=== PATIENT | female | born 1935 | race Caucasian/White ===

== ENCOUNTER 2018-08-18 10:48 | Inpatient (IN) | payer MEDICARE, OTHER ==
[~2018-08-18] VITALS: Ht 157.5 cm; Wt 54.2 kg
[~2018-08-18 10:48] MED LIST: ASPI-825 PO; D-AM10TA2 PO; DIAZ10TA PO; IBUP-2070 PO; TRAM50TA4 PO; VICOT
[2018-08-18] MEDS ORDERED: OXYC20 PO (10:59)
[2018-08-18] MEDS ORDERED: SODIUM CHLORIDE 0.9% 1,000 ML IV ONE (11:30)
[2018-08-18] MEDS ORDERED: ACETAMINOPHEN 325 MG TABLET PO ONE (11:30)
[2018-08-18 11:39] LABS: BASOPHILS % (AUTO) 0.4 % (0.0-2.0); EOSINOPHILS % (AUTO) 2.7 % (1.0-6.0); HEMATOCRIT 39.9 % (36-46); HEMOGLOBIN 13.1 g/dL (12.0-16.0); LYMPHOCYTES # (AUTO) 1.5 K/uL (1.0-4.8); MEAN CORPUSCULAR HEMOGLOBIN 28.9 pg (26.0-34.0); MEAN CORPUSCULAR HGB CONC 32.9 G/dL (31.0-37.0); MEAN CORPUSCULAR VOLUME 88 fL (80-100); MONOCYTES # (AUTO) 0.4 K/uL (0.1-1.0); MONOCYTES % (AUTO) 5.7 % (2.0-9.0); NEUTROPHILS # (AUTO) 4.2 K/uL (1.8-7.7); NEUTROPHILS % (AUTO) 67.2 % (40.0-70.0); PLATELET COUNT (AUTO) 334 K/uL (150-450); RED BLOOD CELL COUNT(AUTO) 4.55 MIL/uL (4.00-5.20); RED CELL DISTRIBUTION WIDTH 14.1 % (11.5-14.5)
[2018-08-18 12:16] LABS: ALANINE AMINOTRANSFERASE 24 U/L (12-78); ALBUMIN 3.4 g/dL (3.4-5.0); ALKALINE PHOSPHATASE 92 U/L (46-116); ANION GAP 9 mmol/L (8-16); ASPARTATE AMINOTRANSFERASE 22 U/L (15-37); BILIRUBIN,TOTAL 0.3 mg/dL (0.1-1.0); CALCIUM, TOTAL 8.7 mg/dL (8.8-10.5); CARBON DIOXIDE 27 mmol/L (22-29); CHLORIDE 106 mmol/L (98-107); CREATININE 0.74 mg/dL (0.60-1.30); GLUCOSE,RANDOM 112 mg/dL (70-110); SODIUM SERUM 142 mmol/L (136-145); TOTAL PROTEIN, SERUM 6.8 g/dL (6.4-8.2); UREA NITROGEN, BLOOD 10 mg/dL (7-18)
[2018-08-18 12:26] LABS: POTASSIUM 2.9 mmol/L (3.5-5.1)
[2018-08-18 12:27] LABS: GLOMERULAR FILTR. RATE CALC > 60 mL/min (>60)
[2018-08-18] MEDS ORDERED: ONDANSETRON HCL 4 MG/2 ML VIAL IVP ONE (12:30)
[2018-08-18] MEDS ORDERED: POTASSIUM CHLORIDE 20 MEQ ER TABLET PO ONE (12:30)
[2018-08-18 12:44] LABS: INFLUENZA TYPE A NEGATIVE FOR TYPE A (NEGATIVE); INFLUENZA TYPE B NEGATIVE FOR TYPE B (NEGATIVE)
[2018-08-18] MEDS ORDERED: ASPIRIN 81 MG CHEWABLE TABLET PO ONE (13:45)
[2018-08-18] MEDS ORDERED: ONDANSETRON HCL 4 MG/2 ML VIAL IVP PRN ×2 (14:00→21:15)
[2018-08-18] MEDS ORDERED: ACETAMINOPHEN 325 MG TABLET PO PRN ×2 (14:00→21:15)
[2018-08-18] MEDS: ONDANSETRON HCL 4 MG/2 ML VIAL IVP PRN (18:01)
[2018-08-18] MEDS: HYDROmorphone 2 MG/ML SYRINGE IVP PRN (18:02)
[2018-08-18] MEDS ORDERED: ZOLPIDEM TARTRATE 5 MG TABLET PO PRN (21:15)
[2018-08-18] MEDS ORDERED: BISACODYL 10 MG RECTAL RECTAL SUPPOSITORY PR PRN (21:15)
[2018-08-18] MEDS ORDERED: MAGNESIUM HYDROXIDE SUSPENSION 30 ML UDCUP PO PRN (21:15)
[2018-08-18 23:32] VITALS: BP 145/55
[2018-08-18] MEDS: NITROGLYCERIN 2% (1 GM=INCH) PACKET TP SCH (23:54)
[2018-08-18] MEDS: HEPARIN SODIUM,PORCINE 5,000 UNITS/ML VIAL SQ SCH (23:54)
[2018-08-19] VITALS (7 sets, daily range): BP systolic 116–151; BP diastolic 54–79
[2018-08-19] MEDS: HYDROmorphone 2 MG/ML SYRINGE IVP PRN ×4 (02:22→20:25)
[2018-08-19 06:38] LABS: BASOPHILS % (AUTO) 0.4 % (0.0-2.0); EOSINOPHILS % (AUTO) 2.9 % (1.0-6.0); HEMATOCRIT 36.8 % (36-46); HEMOGLOBIN 12.3 g/dL (12.0-16.0); LYMPHOCYTES # (AUTO) 1.9 K/uL (1.0-4.8); LYMPHOCYTES % (AUTO) 29.9 % (22.0-44.0); MEAN CORPUSCULAR HEMOGLOBIN 29.8 pg (26.0-34.0); MEAN CORPUSCULAR HGB CONC 33.5 G/dL (31.0-37.0); MEAN CORPUSCULAR VOLUME 89 fL (80-100); MONOCYTES # (AUTO) 0.4 K/uL (0.1-1.0); NEUTROPHILS # (AUTO) 3.7 K/uL (1.8-7.7); NEUTROPHILS % (AUTO) 59.8 % (40.0-70.0); PLATELET COUNT (AUTO) 309 K/uL (150-450); RED BLOOD CELL COUNT(AUTO) 4.14 MIL/uL (4.00-5.20); RED CELL DISTRIBUTION WIDTH 14.3 % (11.5-14.5)
[2018-08-19 07:06] LABS: B-TYPE NATRIURETIC PEPTIDE 187 pg/mL (0-100)
[2018-08-19 07:18] LABS: ALANINE AMINOTRANSFERASE 20 U/L (12-78); ALKALINE PHOSPHATASE 78 U/L (46-116); ANION GAP 6 mmol/L (8-16); ASPARTATE AMINOTRANSFERASE 19 U/L (15-37); BILIRUBIN,TOTAL 0.2 mg/dL (0.1-1.0); CALCIUM, TOTAL 8.3 mg/dL (8.8-10.5); CARBON DIOXIDE 28 mmol/L (22-29); CHLORIDE 110 mmol/L (98-107); CHOLESTEROL 144 mg/dL (131-200); CREATININE 0.78 mg/dL (0.60-1.30); GLOMERULAR FILTR. RATE CALC > 60 mL/min (>60); GLUCOSE,RANDOM 92 mg/dL (70-110); HDL CHOLESTEROL 36 mg/dL (40-60); LDL CHOL (CALC.) 88 mg/dL (0-130); POTASSIUM 3.7 mmol/L (3.5-5.1); SODIUM SERUM 144 mmol/L (136-145); TOTAL PROTEIN, SERUM 5.7 g/dL (6.4-8.2); TRIGLYCERIDES 100 mg/dL (15-150); UREA NITROGEN, BLOOD 13 mg/dL (7-18)
[2018-08-19] MEDS: PANTOPRAZOLE SODIUM 40 MG DR TABLET PO SCH (08:17)
[2018-08-19] MEDS: NITROGLYCERIN 2% (1 GM=INCH) PACKET TP SCH ×3 (08:17→23:47)
[2018-08-19] MEDS: HEPARIN SODIUM,PORCINE 5,000 UNITS/ML VIAL SQ SCH ×3 (08:17→23:47)
[2018-08-19] MEDS: DOCUSATE SODIUM 100 MG CAPSULE PO SCH ×2 (08:17→19:39)
[2018-08-19] MEDS: ASPIRIN 81 MG CHEWABLE TABLET PO SCH (08:17)
[2018-08-20] MEDS: HYDROmorphone 2 MG/ML SYRINGE IVP PRN ×4 (02:56→21:32)
[2018-08-20 03:46] VITALS: BP 138/60
[2018-08-20 07:37] VITALS: BP 168/80
[2018-08-20] MEDS: HEPARIN SODIUM,PORCINE 5,000 UNITS/ML VIAL SQ SCH ×3 (08:13→23:45)
[2018-08-20] MEDS: PANTOPRAZOLE SODIUM 40 MG DR TABLET PO SCH (08:14)
[2018-08-20] MEDS: DOCUSATE SODIUM 100 MG CAPSULE PO SCH ×2 (08:14→19:37)
[2018-08-20] MEDS: ASPIRIN 81 MG CHEWABLE TABLET PO SCH (08:14)
[2018-08-20] MEDS: NITROGLYCERIN 2% (1 GM=INCH) PACKET TP SCH ×3 (08:14→23:44)
[2018-08-20 10:29] LABS: ANION GAP 3 mmol/L (8-16); CALCIUM, TOTAL 8.2 mg/dL (8.8-10.5); CARBON DIOXIDE 31 mmol/L (22-29); CHLORIDE 106 mmol/L (98-107); CREATININE 0.78 mg/dL (0.60-1.30); GLUCOSE,RANDOM 105 mg/dL (70-110); POTASSIUM 3.7 mmol/L (3.5-5.1); SODIUM SERUM 140 mmol/L (136-145); UREA NITROGEN, BLOOD 13 mg/dL (7-18)
[2018-08-20 10:30] LABS: GLOMERULAR FILTR. RATE CALC > 60 mL/min (>60)
[2018-08-20 11:23] VITALS: BP 147/76
[2018-08-20] MEDS: ONDANSETRON HCL 4 MG/2 ML VIAL IVP PRN (12:09)
[2018-08-20 15:00] VITALS: BP 139/62
[2018-08-20] MEDS: ALPRAZolam 0.25 MG TABLET PO SCH ×2 (15:00→23:44)
[2018-08-20 19:55] VITALS: BP 142/57
[2018-08-20 23:50] VITALS: BP 142/65
[2018-08-21] MEDS: HYDROmorphone 2 MG/ML SYRINGE IVP PRN ×3 (04:23→16:19)
[2018-08-21 05:10] VITALS: BP 150/69
[2018-08-21 07:26] VITALS: BP 137/61
[2018-08-21] MEDS: HEPARIN SODIUM,PORCINE 5,000 UNITS/ML VIAL SQ SCH ×2 (08:26→16:18)
[2018-08-21] MEDS: NITROGLYCERIN 2% (1 GM=INCH) PACKET TP SCH ×2 (08:26→16:18)
[2018-08-21] MEDS: DOCUSATE SODIUM 100 MG CAPSULE PO SCH (08:26)
[2018-08-21] MEDS: ASPIRIN 81 MG CHEWABLE TABLET PO SCH (08:26)
[2018-08-21] MEDS: PANTOPRAZOLE SODIUM 40 MG DR TABLET PO SCH (08:26)
[2018-08-21] MEDS: ALPRAZolam 0.25 MG TABLET PO SCH ×2 (08:37→16:18)
[2018-08-21 09:20] LABS: ANION GAP 6 mmol/L (8-16); CALCIUM, TOTAL 8.3 mg/dL (8.8-10.5); CARBON DIOXIDE 29 mmol/L (22-29); CHLORIDE 106 mmol/L (98-107); CREATININE 0.72 mg/dL (0.60-1.30); GLUCOSE,RANDOM 139 mg/dL (70-110); POTASSIUM 3.4 mmol/L (3.5-5.1); SODIUM SERUM 141 mmol/L (136-145); UREA NITROGEN, BLOOD 12 mg/dL (7-18)
[2018-08-21 09:22] LABS: GLOMERULAR FILTR. RATE CALC > 60 mL/min (>60)
[2018-08-21 12:00] VITALS: BP 137/52
[2018-08-21] MEDS ORDERED: RISP.5 PO (15:20)
== END 2018-08-21 16:55 | disposition home or self-care (01) | DRG 313 ==
LOC: EMS 10:49 → 5N 13:54 → 5S 20:45
PROVIDERS: ADMIT Internal Medicine; ATTEND Internal Medicine
DX: R07.9 Chest pain, unspecified (principal); F11.20 Opioid dependence, uncomplicated; E87.6 Hypokalemia; G89.29 Other chronic pain; I10 Essential (primary) hypertension; I44.7 Left bundle-branch block, unspecified; R01.1 Cardiac murmur, unspecified; M54.9 Dorsalgia, unspecified; F41.9 Anxiety disorder, unspecified; G47.419 Narcolepsy without cataplexy; F29 Unspecified psychosis not due to a substance or known physiological condition; R53.1 Weakness; Z88.6 Allergy status to analgesic agent; Z79.899 Other long term (current) drug therapy
CPT/HCPCS: 87804; 93005; 93306; 96374; 96375; 96376; 97116; 97162; G0378; J1170; J1644; J2405; J7030

== ENCOUNTER 2018-08-30 03:18 | Emergency (ER) | payer MEDICARE, OTHER ==
[~2018-08-30] VITALS: Ht 157.5 cm; Wt 53.6 kg
[~2018-08-30 03:18] MED LIST changes: -DIAZ10TA PO; -IBUP-2070 PO; +OXYC20 PO; +RISP.5 PO; -TRAM50TA4 PO
[2018-08-30] MEDS ORDERED: KETOROLAC TROMETHAMINE 30 MG/ML VIAL IM ONE (04:15)
[2018-08-30] MEDS ORDERED: HYDROmorphone 2 MG/ML SYRINGE IM ONE (04:15)
[2018-08-30 05:20] VITALS: BP 132/76
== END 2018-08-30 05:25 | disposition home or self-care (01) ==
LOC: EMS 03:19
DX: M54.42 Lumbago with sciatica, left side (principal); Z88.5 Allergy status to narcotic agent; Z88.6 Allergy status to analgesic agent
CPT/HCPCS: 96372; 99283; J1170; J1885

== ENCOUNTER 2018-10-15 20:29 | Emergency (ER) | payer MEDICARE, OTHER ==
[~2018-10-15] VITALS: Ht 160 cm; Wt 55.0 kg
[2018-10-15 21:48] LABS: BASOPHILS % (AUTO) 0.5 % (0.0-2.0); EOSINOPHILS % (AUTO) 1.1 % (1.0-6.0); HEMATOCRIT 42.9 % (36-46); HEMOGLOBIN 14.2 g/dL (12.0-16.0); LYMPHOCYTES # (AUTO) 1.4 K/uL (1.0-4.8); LYMPHOCYTES % (AUTO) 11.6 % (22.0-44.0); MEAN CORPUSCULAR HEMOGLOBIN 28.8 pg (26.0-34.0); MEAN CORPUSCULAR HGB CONC 33.1 G/dL (31.0-37.0); MEAN CORPUSCULAR VOLUME 87 fL (80-100); MONOCYTES # (AUTO) 0.4 K/uL (0.1-1.0); MONOCYTES % (AUTO) 3.6 % (2.0-9.0); NEUTROPHILS # (AUTO) 9.7 K/uL (1.8-7.7); NEUTROPHILS % (AUTO) 83.2 % (40.0-70.0); PLATELET COUNT (AUTO) 246 K/uL (150-450); RED BLOOD CELL COUNT(AUTO) 4.92 MIL/uL (4.00-5.20); RED CELL DISTRIBUTION WIDTH 14.1 % (11.5-14.5)
[2018-10-15 22:05] LABS: CALCIUM, TOTAL 8.9 mg/dL (8.8-10.5); CREATININE 0.96 mg/dL (0.60-1.30); POTASSIUM 3.2 mmol/L (3.5-5.1)
[2018-10-15 22:28] LABS: ALBUMIN 3.8 g/dL (3.4-5.0); BILIRUBIN,TOTAL 0.4 mg/dL (0.1-1.0); TOTAL PROTEIN, SERUM 7.5 g/dL (6.4-8.2)
[2018-10-15] MEDS ORDERED: POTASSIUM CHLORIDE 20 MEQ ER TABLET PO ONE (22:30)
[2018-10-15 22:33] LABS: APPEARANCE,URINE CLEAR (CLEAR); BILIRUBIN,URINE NEGATIVE (NEGATIVE); GLUCOSE, URINE (UA) NEGATIVE (NEGATIVE); KETONES,URINE 15 mg/dL (NEGATIVE); LEUKOCYTE ESTERASE ,URINE NEGATIVE (NEGATIVE); NITRATE,URINE NEGATIVE (NEGATIVE); OCCULT BLOOD,URINE NEGATIVE (NEGATIVE); PROTEIN,URINE NEGATIVE (NEGATIVE); UROBILINOGEN,URINE 0.2 mg/dL (<=1.0)
[2018-10-15] MEDS ORDERED: OLANZapine 5 MG RAPDIS TABLET PO ONE (23:00)
[2018-10-16 00:30] VITALS: BP 132/87
== END 2018-10-16 01:00 | disposition short-term general hospital (02) ==
LOC: EMS 20:30
DX: E86.0 Dehydration (principal); E87.6 Hypokalemia; G89.29 Other chronic pain; Z88.5 Allergy status to narcotic agent; Z79.82 Long term (current) use of aspirin
CPT/HCPCS: 93005

== ENCOUNTER 2018-12-01 18:48 | Inpatient (IN) | payer MEDICARE, OTHER ==
[~2018-12-01] VITALS: Ht 160 cm; Wt 56.0 kg
[~2018-12-01 18:48] MED LIST changes: -OXYC20 PO; -VICOT
[2018-12-01] MEDS ORDERED: TRAM50TA4 PO (19:35)
[2018-12-01] MEDS ORDERED: SODIUM CHLORIDE 0.9% 1,600 ML IV ONE (20:48)
[2018-12-01] MEDS ORDERED: 0.9% SODIUM CHLORIDE 10 ML SYRINGE IVP PRN (21:00)
[2018-12-01 21:08] LABS: BASOPHILS % (AUTO) 0.6 % (0.0-2.0); HEMATOCRIT 41.2 % (36-46); HEMOGLOBIN 13.5 g/dL (12.0-16.0); LYMPHOCYTES # (AUTO) 1.5 K/uL (1.0-4.8); LYMPHOCYTES % (AUTO) 24.9 % (22.0-44.0); MEAN CORPUSCULAR HEMOGLOBIN 28.6 pg (26.0-34.0); MEAN CORPUSCULAR HGB CONC 32.9 G/dL (31.0-37.0); MEAN CORPUSCULAR VOLUME 87 fL (80-100); MONOCYTES # (AUTO) 0.5 K/uL (0.1-1.0); MONOCYTES % (AUTO) 7.4 % (2.0-9.0); NEUTROPHILS # (AUTO) 4.1 K/uL (1.8-7.7); NEUTROPHILS % (AUTO) 66.1 % (40.0-70.0); PLATELET COUNT (AUTO) 257 K/uL (150-450); RED BLOOD CELL COUNT(AUTO) 4.74 MIL/uL (4.00-5.20); RED CELL DISTRIBUTION WIDTH 14.4 % (11.5-14.5)
[2018-12-01 21:19] LABS: CALCIUM, TOTAL 8.9 mg/dL (8.8-10.5); CREATININE 0.91 mg/dL (0.60-1.30)
[2018-12-01 21:21] LABS: PROTHROMBIN TIME 10.9 SEC (9.4-11.6)
[2018-12-01 21:23] LABS: ALBUMIN 3.8 g/dL (3.4-5.0); BILIRUBIN,TOTAL 0.3 mg/dL (0.1-1.0); TOTAL PROTEIN, SERUM 7.2 g/dL (6.4-8.2)
[2018-12-01 21:36] LABS: POTASSIUM 2.8 mmol/L (3.5-5.1)
[2018-12-01] MEDS ORDERED: POTASSIUM CHLORIDE 20 MEQ ER TABLET PO PRN (21:45)
[2018-12-01] MEDS ORDERED: DEXTROSE 5%-0.45% SODIUM CHL 1,000 ML IV ONE (21:45)
[2018-12-01] MEDS ORDERED: MAGNESIUM HYDROXIDE SUSPENSION 30 ML UDCUP PO PRN (21:45)
[2018-12-01] MEDS ORDERED: ALBUTEROL SULFATE 2.5 MG/0.5 ML NEB SOLUTION NEB PRN (21:45)
[2018-12-01] MEDS ORDERED: TraMADol HCL 50 MG TABLET PO ONE (22:00)
[2018-12-01 22:02] LABS: APPEARANCE,URINE CLEAR (CLEAR); BILIRUBIN,URINE NEGATIVE (NEGATIVE); GLUCOSE, URINE (UA) NEGATIVE (NEGATIVE); KETONES,URINE NEGATIVE (NEGATIVE); LEUKOCYTE ESTERASE ,URINE SMALL (NEGATIVE); NITRATE,URINE NEGATIVE (NEGATIVE); OCCULT BLOOD,URINE NEGATIVE (NEGATIVE); PROTEIN,URINE NEGATIVE (NEGATIVE); UROBILINOGEN,URINE 0.2 mg/dL (<=1.0)
[2018-12-01 22:15] LABS: BACTERIA,URINE Few /HPF (None Seen); RBC,URINE 0-2 /HPF (0-2); SQUAMOUS EPITHELIAL CELL,UR Moderate /LPF (None Seen)
[2018-12-01] MEDS: POTASSIUM CHL 10 MEQ/WATER 50 ML IV PRN (22:24)
[2018-12-02] VITALS (7 sets, daily range): BP systolic 117–154; BP diastolic 47–74
[2018-12-02] MEDS: POTASSIUM CHL 10 MEQ/WATER 50 ML IV PRN ×2 (00:30→09:47)
[2018-12-02] MEDS: ACETAMINOPHEN 325 MG TABLET PO PRN (04:27)
[2018-12-02] MEDS: TraMADol HCL 50 MG TABLET PO PRN ×3 (05:04→18:18)
[2018-12-02] MEDS: DOCUSATE SODIUM 100 MG CAPSULE PO SCH ×2 (09:00→21:00)
[2018-12-02] MEDS: FAMOTIDINE 20 MG TABLET PO SCH (09:45)
[2018-12-02] MEDS: HEPARIN SODIUM,PORCINE 5,000 UNITS/ML VIAL SQ SCH ×4 (09:46→23:41)
[2018-12-02] MEDS ORDERED: POTASSIUM CHLORIDE 20 MEQ ER TABLET PO ONE (11:30)
[2018-12-02] MEDS ORDERED: LORazepam 2 MG/ML VIAL IVP ONE ×2 (22:15→23:45)
[2018-12-03] MEDS: TraMADol HCL 50 MG TABLET PO PRN ×2 (00:19→18:46)
[2018-12-03 05:05] VITALS: BP 150/60
[2018-12-03 06:37] LABS: ANION GAP 8 mmol/L (8-16); CALCIUM, TOTAL 8.9 mg/dL (8.8-10.5); CARBON DIOXIDE 27 mmol/L (22-29); CHLORIDE 107 mmol/L (98-107); CREATININE 0.71 mg/dL (0.60-1.30); GLUCOSE,RANDOM 98 mg/dL (70-110); POTASSIUM 3.6 mmol/L (3.5-5.1); SODIUM SERUM 142 mmol/L (136-145); UREA NITROGEN, BLOOD 7 mg/dL (7-18)
[2018-12-03 06:44] LABS: GLOMERULAR FILTR. RATE CALC > 60 mL/min (>60)
[2018-12-03 07:26] VITALS: BP 171/75
[2018-12-03] MEDS: FAMOTIDINE 20 MG TABLET PO SCH (08:11)
[2018-12-03] MEDS: DOCUSATE SODIUM 100 MG CAPSULE PO SCH ×2 (08:11→20:19)
[2018-12-03] MEDS: HEPARIN SODIUM,PORCINE 5,000 UNITS/ML VIAL SQ SCH ×2 (08:12→16:33)
[2018-12-03] MEDS: CloNIDine HCL 0.1 MG TABLET PO PRN (10:03)
[2018-12-03 12:28] VITALS: BP 140/78
[2018-12-03] MEDS: RisperiDONE 0.5 MG TABLET PO SCH ×5 (13:00→20:19)
[2018-12-03] MEDS ORDERED: BENZ0.5T44 PO (14:37)
[2018-12-03] MEDS: BENZTROPINE MESYLATE 0.5 MG TABLET PO SCH ×2 (14:47→20:19)
[2018-12-03 19:00] VITALS: BP 153/73
[2018-12-03] MEDS: ACETAMINOPHEN 325 MG TABLET PO PRN (20:19)
[2018-12-03] MEDS ORDERED: ALBUTEROL SULFATE 2.5 MG/0.5 ML NEB SOLUTION NEB PRN (21:45)
[2018-12-03] MEDS: HYDROCODONE/ACETAMINOPHEN 5-325 MG TABLET PO PRN (22:19)
[2018-12-04] VITALS: BP 154/77
[2018-12-04] MEDS: HEPARIN SODIUM,PORCINE 5,000 UNITS/ML VIAL SQ SCH ×3 (00:16→16:22)
[2018-12-04] MEDS: TraMADol HCL 50 MG TABLET PO PRN (00:57)
[2018-12-04] MEDS: HYDROCODONE/ACETAMINOPHEN 5-325 MG TABLET PO PRN ×4 (03:58→20:14)
[2018-12-04 04:00] VITALS: BP 149/70
[2018-12-04 07:18] VITALS: BP 163/96
[2018-12-04] MEDS: CloNIDine HCL 0.1 MG TABLET PO PRN (08:17)
[2018-12-04] MEDS: FAMOTIDINE 20 MG TABLET PO SCH (08:17)
[2018-12-04] MEDS: RisperiDONE 0.5 MG TABLET PO SCH ×2 (08:17→19:19)
[2018-12-04] MEDS: BENZTROPINE MESYLATE 0.5 MG TABLET PO SCH ×2 (08:17→19:19)
[2018-12-04] MEDS: DOCUSATE SODIUM 100 MG CAPSULE PO SCH ×2 (08:17→21:00)
[2018-12-04 12:54] VITALS: BP 121/74
[2018-12-04 15:01] VITALS: BP 127/72
[2018-12-04 19:30] VITALS: BP 141/81
[2018-12-05] MEDS: HEPARIN SODIUM,PORCINE 5,000 UNITS/ML VIAL SQ SCH ×4 (00:34→23:50)
[2018-12-05] MEDS: HYDROCODONE/ACETAMINOPHEN 5-325 MG TABLET PO PRN ×6 (00:34→22:04)
[2018-12-05 04:14] VITALS: BP 138/81
[2018-12-05] MEDS: FAMOTIDINE 20 MG TABLET PO SCH (08:58)
[2018-12-05] MEDS: RisperiDONE 0.5 MG TABLET PO SCH ×2 (08:59→19:55)
[2018-12-05] MEDS: BENZTROPINE MESYLATE 0.5 MG TABLET PO SCH ×2 (08:59→19:58)
[2018-12-05 09:49] VITALS: BP 146/69
[2018-12-05] MEDS: DOCUSATE SODIUM 100 MG CAPSULE PO SCH ×2 (11:10→19:58)
[2018-12-05 12:00] VITALS: BP 133/66
[2018-12-05 15:00] VITALS: BP 129/71
[2018-12-05 19:27] VITALS: BP 138/75
[2018-12-05 23:42] VITALS: BP 132/62
[2018-12-06] MEDS: HYDROCODONE/ACETAMINOPHEN 5-325 MG TABLET PO PRN ×4 (02:05→14:17)
[2018-12-06 04:38] VITALS: BP 169/90
[2018-12-06] MEDS: CloNIDine HCL 0.1 MG TABLET PO PRN (04:42)
[2018-12-06 06:05] VITALS: BP 110/71
[2018-12-06 07:46] VITALS: BP 116/75
[2018-12-06] MEDS: HEPARIN SODIUM,PORCINE 5,000 UNITS/ML VIAL SQ SCH ×2 (08:57→15:49)
[2018-12-06] MEDS: RisperiDONE 0.5 MG TABLET PO SCH (08:57)
[2018-12-06] MEDS: BENZTROPINE MESYLATE 0.5 MG TABLET PO SCH (08:57)
[2018-12-06] MEDS: FAMOTIDINE 20 MG TABLET PO SCH (08:57)
[2018-12-06] MEDS: DOCUSATE SODIUM 100 MG CAPSULE PO SCH (08:57)
[2018-12-06] MEDS ORDERED: MULTIVITAMINS WITH MINERALS, THERAPEUTIC TABLET PO SCH (09:30)
[2018-12-06] MEDS ORDERED: ALPRAZolam 0.5 MG TABLET PO PRN (10:15)
[2018-12-06 12:45] VITALS: BP 117/74
[2018-12-06 15:15] VITALS: BP 121/73
== END 2018-12-06 16:45 | DRG 641 ==
LOC: EMS 18:50 → 5N 22:01 → EMS 23:10
PROVIDERS: ADMIT Internal Medicine; ATTEND Internal Medicine
DX: E87.6 Hypokalemia (principal); R62.7 Adult failure to thrive; F29 Unspecified psychosis not due to a substance or known physiological condition; F41.1 Generalized anxiety disorder; R53.1 Weakness; G47.419 Narcolepsy without cataplexy; G89.29 Other chronic pain; M54.5 Low back pain; Z86.73 Personal history of transient ischemic attack (TIA), and cerebral infarction without residual deficits; Z85.3 Personal history of malignant neoplasm of breast; Z88.5 Allergy status to narcotic agent; Z68.21 Body mass index [BMI] 21.0-21.9, adult
CPT/HCPCS: 51702; 70450; 83605; 83735; 84132; 87040; 93005; 96360; 97116; 97162; 97530; G0378; J1644; J3480; J7030

== ENCOUNTER 2019-06-28 19:19 | Inpatient (IN) | payer MEDICARE, OTHER ==
[~2019-06-28] VITALS: Ht 154.9 cm; Wt 54.9 kg
[~2019-06-28 19:19] MED LIST changes: +BENZ0.5T44 PO; +TRAM50TA4 PO
[2019-06-28] MEDS ORDERED: VALS160T2 PO (19:46)
[2019-06-28] MEDS ORDERED: ALPR0.255 PO (19:46)
[2019-06-28] MEDS ORDERED: KDUR10 PO (19:46)
[2019-06-28 20:07] LABS: APPEARANCE,URINE CLEAR (CLEAR); BILIRUBIN,URINE NEGATIVE (NEGATIVE); GLUCOSE, URINE (UA) NEGATIVE (NEGATIVE); KETONES,URINE NEGATIVE (NEGATIVE); LEUKOCYTE ESTERASE ,URINE TRACE (NEGATIVE); NITRATE,URINE NEGATIVE (NEGATIVE); OCCULT BLOOD,URINE NEGATIVE (NEGATIVE); PROTEIN,URINE NEGATIVE (NEGATIVE); UROBILINOGEN,URINE 0.2 mg/dL (<=1.0)
[2019-06-28] MEDS ORDERED: SODIUM CHLORIDE 0.9% 100 ML ONE (20:09)
[2019-06-28] MEDS ORDERED: IOVERSOL 350 MG/ML 100 ML VIAL ONE (20:09)
[2019-06-28 20:10] LABS: BASOPHILS % (AUTO) 0.5 % (0.0-2.0); EOSINOPHILS % (AUTO) 0.5 % (1.0-6.0); HEMATOCRIT 39.3 % (36-46); HEMOGLOBIN 13.5 g/dL (12.0-16.0); LYMPHOCYTES # (AUTO) 1.4 K/uL (1.0-4.8); MEAN CORPUSCULAR HEMOGLOBIN 30.3 pg (26.0-34.0); MEAN CORPUSCULAR HGB CONC 34.4 G/dL (31.0-37.0); MEAN CORPUSCULAR VOLUME 88 fL (80-100); MONOCYTES # (AUTO) 0.5 K/uL (0.1-1.0); MONOCYTES % (AUTO) 6.7 % (2.0-9.0); NEUTROPHILS # (AUTO) 5.1 K/uL (1.8-7.7); NEUTROPHILS % (AUTO) 72.3 % (40.0-70.0); PLATELET COUNT (AUTO) 267 K/uL (150-450); RED BLOOD CELL COUNT(AUTO) 4.45 MIL/uL (4.00-5.20); RED CELL DISTRIBUTION WIDTH 12.7 % (11.5-14.5)
[2019-06-28 20:20] LABS: CALCIUM, TOTAL 9.3 mg/dL (8.8-10.5); CREATININE 0.9 mg/dL (0.60-1.30); POTASSIUM 3.1 mmol/L (3.5-5.1)
[2019-06-28 20:26] LABS: ALBUMIN 3.4 g/dL (3.4-5.0); BILIRUBIN,TOTAL 0.3 mg/dL (0.1-1.0); TOTAL PROTEIN, SERUM 6.9 g/dL (6.4-8.2)
[2019-06-28 20:30] LABS: BACTERIA,URINE Rare /HPF (None Seen); SQUAMOUS EPITHELIAL CELL,UR Moderate /LPF (None Seen)
[2019-06-28] MEDS ORDERED: POTASSIUM CHLORIDE 20 MEQ ER TABLET PO ONE (21:30)
[2019-06-28] MEDS ORDERED: MECLIZINE HCL 25 MG TABLET PO ONE (21:30)
[2019-06-28] MEDS ORDERED: ONDANSETRON HCL 4 MG/2 ML VIAL IVP ONE (21:30)
[2019-06-28] MEDS ORDERED: KETOROLAC TROMETHAMINE 30 MG/ML VIAL IVP ONE (21:30)
[2019-06-28] MEDS ORDERED: POTASSIUM CHL 20 MEQ/0.9% NS 1,000 ML IV ONE (21:30)
[2019-06-28] MEDS ORDERED: ONDANSETRON HCL 4 MG/2 ML VIAL IVP PRN (23:00)
[2019-06-28] MEDS ORDERED: ACETAMINOPHEN 325 MG TABLET PO PRN (23:00)
[2019-06-29] VITALS (7 sets, daily range): BP systolic 140–169; BP diastolic 62–86
[2019-06-29] MEDS ORDERED: TraMADol HCL 50 MG TABLET PO SCH (01:45)
[2019-06-29] MEDS: ALPRAZolam 0.25 MG TABLET PO SCH ×2 (02:09→08:31)
[2019-06-29] MEDS ORDERED: INFLUENZA VIRUS VACCINE QVS 2019-20 (3YR+)/PF 60 MCG/0.5 ML SYRINGE IM ONE (04:00)
[2019-06-29] MEDS ORDERED: POTASSIUM CHL 10 MEQ/WATER 50 ML IV PRN (04:45)
[2019-06-29] MEDS ORDERED: MAGNESIUM HYDROXIDE SUSPENSION 30 ML UDCUP PO PRN (04:45)
[2019-06-29] MEDS ORDERED: ONDANSETRON HCL 4 MG/2 ML VIAL IVP PRN (04:45)
[2019-06-29] MEDS ORDERED: 0.9% SODIUM CHLORIDE 10 ML SYRINGE IVP PRN (04:45)
[2019-06-29] MEDS: FAMOTIDINE 20 MG TABLET PO SCH ×3 (05:50→20:30)
[2019-06-29] MEDS: SODIUM CHLORIDE 0.9% 1,000 ML IV SCH ×2 (05:50→16:23)
[2019-06-29 07:10] LABS: ANION GAP 9 mmol/L (8-16); CARBON DIOXIDE 26 mmol/L (22-29); CHLORIDE 96 mmol/L (98-107); CREATININE 0.81 mg/dL (0.60-1.30); GLUCOSE,RANDOM 90 mg/dL (70-110); POTASSIUM 3.5 mmol/L (3.5-5.1); SODIUM SERUM 131 mmol/L (136-145); UREA NITROGEN, BLOOD 10 mg/dL (7-18)
[2019-06-29 07:26] LABS: GLOMERULAR FILTR. RATE CALC > 60 mL/min (>60)
[2019-06-29] MEDS ORDERED: DOCUSATE SODIUM 100 MG CAPSULE PO SCH (09:00)
[2019-06-29] MEDS: TraMADol HCL 50 MG TABLET PO PRN (11:02)
[2019-06-29 11:55] LABS: FREE T4 (FREE THYROXINE) 1.01 ng/dL (0.76-1.46)
[2019-06-29] MEDS: VALSARTAN 80 MG TABLET PO SCH (12:10)
[2019-06-29] MEDS: ACETAMINOPHEN 325 MG TABLET PO PRN ×2 (16:22→23:08)
[2019-06-29] MEDS: ALPRAZolam 0.25 MG TABLET PO PRN (20:30)
[2019-06-29] MEDS: BENZTROPINE MESYLATE 0.5 MG TABLET PO SCH (20:30)
[2019-06-30] MEDS: BENZTROPINE MESYLATE 0.5 MG TABLET PO SCH ×2 (00:15→09:00)
[2019-06-30] MEDS: FAMOTIDINE 20 MG TABLET PO SCH ×2 (00:15→09:00)
[2019-06-30] MEDS: TraMADol HCL 50 MG TABLET PO PRN ×2 (00:31→13:19)
[2019-06-30] MEDS: POTASSIUM CHLORIDE 20 MEQ ER TABLET PO PRN (01:37)
[2019-06-30 04:29] VITALS: BP 136/64
[2019-06-30] MEDS: ALPRAZolam 0.25 MG TABLET PO PRN ×2 (05:33→14:36)
[2019-06-30] MEDS: SODIUM CHLORIDE 0.9% 1,000 ML IV SCH (05:33)
[2019-06-30 07:05] LABS: BASOPHILS % (AUTO) 0.3 % (0.0-2.0); EOSINOPHILS % (AUTO) 1.5 % (1.0-6.0); HEMATOCRIT 35.9 % (36-46); HEMOGLOBIN 12.5 g/dL (12.0-16.0); LYMPHOCYTES # (AUTO) 2.2 K/uL (1.0-4.8); LYMPHOCYTES % (AUTO) 32.3 % (22.0-44.0); MEAN CORPUSCULAR HGB CONC 34.8 G/dL (31.0-37.0); MEAN CORPUSCULAR VOLUME 89 fL (80-100); MONOCYTES # (AUTO) 0.5 K/uL (0.1-1.0); MONOCYTES % (AUTO) 8.1 % (2.0-9.0); NEUTROPHILS # (AUTO) 3.9 K/uL (1.8-7.7); NEUTROPHILS % (AUTO) 57.8 % (40.0-70.0); PLATELET COUNT (AUTO) 244 K/uL (150-450); RED BLOOD CELL COUNT(AUTO) 4.04 MIL/uL (4.00-5.20); RED CELL DISTRIBUTION WIDTH 12.7 % (11.5-14.5)
[2019-06-30 07:15] VITALS: BP 131/56
[2019-06-30 07:22] LABS: ANION GAP 3 mmol/L (8-16); CARBON DIOXIDE 28 mmol/L (22-29); CHLORIDE 100 mmol/L (98-107); CHOL/HDL RATIO 3.1 (3.9-5.7); CHOLESTEROL 131 mg/dL (131-200); CREATININE 0.87 mg/dL (0.60-1.30); GLOMERULAR FILTR. RATE CALC > 60 mL/min (>60); GLUCOSE,RANDOM 84 mg/dL (70-110); HDL CHOLESTEROL 42 mg/dL (40-60); LDL CHOL (CALC.) 73 mg/dL (0-130); POTASSIUM 3.2 mmol/L (3.5-5.1); SODIUM SERUM 131 mmol/L (136-145); TRIGLYCERIDES 82 mg/dL (15-150); UREA NITROGEN, BLOOD 8 mg/dL (7-18)
[2019-06-30] MEDS ORDERED: HYDROmorphone 2 MG/ML SYRINGE IVP ONE (09:30)
[2019-06-30 13:05] VITALS: BP 157/73
[2019-06-30] MEDS: ASPIRIN 81 MG CHEWABLE TABLET PO SCH (13:19)
[2019-06-30] MEDS: VALSARTAN 80 MG TABLET PO SCH (13:19)
[2019-06-30 14:51] LABS: CALCIUM, TOTAL 8.4 mg/dL (8.8-10.5); CREATININE 0.94 mg/dL (0.60-1.30); POTASSIUM 3.6 mmol/L (3.5-5.1)
[2019-06-30 15:22] VITALS: BP 156/77
[2019-06-30 19:27] VITALS: BP 156/95
[2019-06-30 21:35] LABS: CALCIUM, TOTAL 8.3 mg/dL (8.8-10.5); CREATININE 0.98 mg/dL (0.60-1.30); POTASSIUM 3.5 mmol/L (3.5-5.1)
[2019-06-30 23:10] VITALS: BP 166/95
[2019-07-01] MEDS: TraMADol HCL 50 MG TABLET PO PRN ×3 (00:15→17:56)
[2019-07-01] MEDS: FAMOTIDINE 20 MG TABLET PO SCH ×3 (00:15→21:20)
[2019-07-01] MEDS: BENZTROPINE MESYLATE 0.5 MG TABLET PO SCH ×3 (00:15→21:20)
[2019-07-01] MEDS: SODIUM CHLORIDE 0.9% 1,000 ML IV SCH (02:57)
[2019-07-01 05:12] VITALS: BP 133/60
[2019-07-01 06:44] LABS: BASOPHILS % (AUTO) 0.4 % (0.0-2.0); EOSINOPHILS % (AUTO) 1.7 % (1.0-6.0); HEMATOCRIT 37.5 % (36-46); HEMOGLOBIN 12.8 g/dL (12.0-16.0); LYMPHOCYTES # (AUTO) 2.3 K/uL (1.0-4.8); LYMPHOCYTES % (AUTO) 30.4 % (22.0-44.0); MEAN CORPUSCULAR HEMOGLOBIN 30.5 pg (26.0-34.0); MEAN CORPUSCULAR HGB CONC 34.1 G/dL (31.0-37.0); MEAN CORPUSCULAR VOLUME 90 fL (80-100); MONOCYTES # (AUTO) 0.6 K/uL (0.1-1.0); MONOCYTES % (AUTO) 7.4 % (2.0-9.0); NEUTROPHILS # (AUTO) 4.6 K/uL (1.8-7.7); NEUTROPHILS % (AUTO) 60.1 % (40.0-70.0); PLATELET COUNT (AUTO) 264 K/uL (150-450); RED BLOOD CELL COUNT(AUTO) 4.18 MIL/uL (4.00-5.20); RED CELL DISTRIBUTION WIDTH 12.7 % (11.5-14.5)
[2019-07-01 07:03] LABS: ANION GAP 8 mmol/L (8-16); CALCIUM, TOTAL 7.9 mg/dL (8.8-10.5); CARBON DIOXIDE 26 mmol/L (22-29); CHLORIDE 105 mmol/L (98-107); CREATININE 0.78 mg/dL (0.60-1.30); GLUCOSE,RANDOM 86 mg/dL (70-110); POTASSIUM 3.2 mmol/L (3.5-5.1); SODIUM SERUM 139 mmol/L (136-145); UREA NITROGEN, BLOOD 10 mg/dL (7-18)
[2019-07-01 07:04] LABS: GLOMERULAR FILTR. RATE CALC > 60 mL/min (>60)
[2019-07-01 07:15] VITALS: BP 131/62
[2019-07-01] MEDS: ALPRAZolam 0.25 MG TABLET PO PRN (09:07)
[2019-07-01] MEDS: VALSARTAN 80 MG TABLET PO SCH (09:07)
[2019-07-01] MEDS: POTASSIUM CHLORIDE 20 MEQ ER TABLET PO PRN (09:08)
[2019-07-01] MEDS: ASPIRIN 81 MG CHEWABLE TABLET PO SCH (09:08)
[2019-07-01 12:05] VITALS: BP 147/73
[2019-07-01] MEDS ORDERED: ASPI81 PO (12:16)
[2019-07-01 14:01] LABS: ANION GAP 7 mmol/L (8-16); CALCIUM, TOTAL 7.9 mg/dL (8.8-10.5); CARBON DIOXIDE 26 mmol/L (22-29); CHLORIDE 105 mmol/L (98-107); CREATININE 0.84 mg/dL (0.60-1.30); GLUCOSE,RANDOM 126 mg/dL (70-110); SODIUM SERUM 138 mmol/L (136-145); UREA NITROGEN, BLOOD 11 mg/dL (7-18)
[2019-07-01 14:11] LABS: GLOMERULAR FILTR. RATE CALC > 60 mL/min (>60)
[2019-07-01 19:30] VITALS: BP 140/64
[2019-07-01 20:53] LABS: ANION GAP 5 mmol/L (8-16); CALCIUM, TOTAL 8.1 mg/dL (8.8-10.5); CARBON DIOXIDE 28 mmol/L (22-29); CHLORIDE 106 mmol/L (98-107); CREATININE 0.87 mg/dL (0.60-1.30); GLUCOSE,RANDOM 115 mg/dL (70-110); POTASSIUM 4.3 mmol/L (3.5-5.1); SODIUM SERUM 139 mmol/L (136-145); UREA NITROGEN, BLOOD 12 mg/dL (7-18)
[2019-07-01 20:54] LABS: GLOMERULAR FILTR. RATE CALC > 60 mL/min (>60)
[2019-07-01 23:31] VITALS: BP 149/76
[2019-07-02] MEDS: TraMADol HCL 50 MG TABLET PO PRN ×3 (00:31→18:45)
[2019-07-02 05:53] VITALS: BP 140/80
[2019-07-02 07:44] LABS: BASOPHILS % (AUTO) 0.5 % (0.0-2.0); EOSINOPHILS % (AUTO) 2.4 % (1.0-6.0); HEMATOCRIT 37.8 % (36-46); HEMOGLOBIN 13.4 g/dL (12.0-16.0); LYMPHOCYTES # (AUTO) 2.3 K/uL (1.0-4.8); LYMPHOCYTES % (AUTO) 32.5 % (22.0-44.0); MEAN CORPUSCULAR HEMOGLOBIN 31.3 pg (26.0-34.0); MEAN CORPUSCULAR HGB CONC 35.4 G/dL (31.0-37.0); MEAN CORPUSCULAR VOLUME 89 fL (80-100); MONOCYTES # (AUTO) 0.5 K/uL (0.1-1.0); MONOCYTES % (AUTO) 6.4 % (2.0-9.0); NEUTROPHILS # (AUTO) 4.2 K/uL (1.8-7.7); NEUTROPHILS % (AUTO) 58.2 % (40.0-70.0); PLATELET COUNT (AUTO) 275 K/uL (150-450); RED BLOOD CELL COUNT(AUTO) 4.27 MIL/uL (4.00-5.20); RED CELL DISTRIBUTION WIDTH 12.9 % (11.5-14.5)
[2019-07-02 07:55] LABS: ANION GAP 11 mmol/L (8-16); CALCIUM, TOTAL 8.2 mg/dL (8.8-10.5); CARBON DIOXIDE 23 mmol/L (22-29); CHLORIDE 105 mmol/L (98-107); CREATININE 0.78 mg/dL (0.60-1.30); GLUCOSE,RANDOM 91 mg/dL (70-110); POTASSIUM 3.4 mmol/L (3.5-5.1); SODIUM SERUM 139 mmol/L (136-145); UREA NITROGEN, BLOOD 11 mg/dL (7-18)
[2019-07-02 07:56] LABS: GLOMERULAR FILTR. RATE CALC > 60 mL/min (>60)
[2019-07-02] MEDS: FAMOTIDINE 20 MG TABLET PO SCH ×2 (08:35→20:06)
[2019-07-02] MEDS: ASPIRIN 81 MG CHEWABLE TABLET PO SCH (08:35)
[2019-07-02] MEDS: DOCUSATE SODIUM 100 MG CAPSULE PO PRN (08:35)
[2019-07-02] MEDS: VALSARTAN 80 MG TABLET PO SCH (08:44)
[2019-07-02] MEDS: BENZTROPINE MESYLATE 0.5 MG TABLET PO SCH ×2 (08:45→20:06)
[2019-07-02 09:39] VITALS: BP 141/67
[2019-07-02 13:18] VITALS: BP 153/76
[2019-07-02] MEDS: ALPRAZolam 0.25 MG TABLET PO PRN (13:46)
[2019-07-02] MEDS: POTASSIUM CHLORIDE 20 MEQ ER TABLET PO PRN (15:58)
[2019-07-02 16:18] VITALS: BP 156/78
[2019-07-02 20:09] VITALS: BP 135/74
[2019-07-02] MEDS: ACETAMINOPHEN 325 MG TABLET PO PRN (21:36)
[2019-07-02 23:26] VITALS: BP 158/79
[2019-07-03] MEDS: ALPRAZolam 0.25 MG TABLET PO PRN ×3 (00:21→19:51)
[2019-07-03] MEDS: TraMADol HCL 50 MG TABLET PO PRN ×3 (01:39→23:59)
[2019-07-03 04:23] VITALS: BP 145/77
[2019-07-03 07:55] VITALS: BP 136/50
[2019-07-03] MEDS: BENZTROPINE MESYLATE 0.5 MG TABLET PO SCH ×2 (08:43→19:51)
[2019-07-03] MEDS: ASPIRIN 81 MG CHEWABLE TABLET PO SCH (08:43)
[2019-07-03] MEDS: DOCUSATE SODIUM 100 MG CAPSULE PO PRN (08:43)
[2019-07-03] MEDS: VALSARTAN 80 MG TABLET PO SCH (08:43)
[2019-07-03] MEDS: FAMOTIDINE 20 MG TABLET PO SCH ×2 (08:43→19:50)
[2019-07-03 12:00] VITALS: BP 152/96
[2019-07-03 16:09] VITALS: BP 149/85
[2019-07-03 19:19] VITALS: BP 143/70
[2019-07-03] MEDS: ACETAMINOPHEN 325 MG TABLET PO PRN (19:50)
[2019-07-03 23:43] VITALS: BP 162/91
[2019-07-04] MEDS: ACETAMINOPHEN 325 MG TABLET PO PRN (01:45)
[2019-07-04] MEDS: ALPRAZolam 0.25 MG TABLET PO PRN (04:27)
[2019-07-04 05:26] VITALS: BP 150/73
[2019-07-04] MEDS: TraMADol HCL 50 MG TABLET PO PRN (06:04)
[2019-07-04 07:46] LABS: ANION GAP 9 mmol/L (8-16); CALCIUM, TOTAL 8.5 mg/dL (8.8-10.5); CARBON DIOXIDE 25 mmol/L (22-29); CHLORIDE 105 mmol/L (98-107); CREATININE 0.82 mg/dL (0.60-1.30); GLUCOSE,RANDOM 93 mg/dL (70-110); POTASSIUM 3.5 mmol/L (3.5-5.1); SODIUM SERUM 139 mmol/L (136-145); UREA NITROGEN, BLOOD 16 mg/dL (7-18)
[2019-07-04 07:49] LABS: GLOMERULAR FILTR. RATE CALC > 60 mL/min (>60)
[2019-07-04 08:42] VITALS: BP 177/82
[2019-07-04] MEDS ORDERED: POTASSIUM CHLORIDE 20 MEQ ER TABLET PO PRN (09:15)
[2019-07-04] MEDS: VALSARTAN 80 MG TABLET PO SCH (09:29)
[2019-07-04] MEDS: ASPIRIN 81 MG CHEWABLE TABLET PO SCH (09:29)
[2019-07-04] MEDS: BENZTROPINE MESYLATE 0.5 MG TABLET PO SCH (09:29)
[2019-07-04] MEDS: FAMOTIDINE 20 MG TABLET PO SCH (09:29)
[2019-07-04 10:46] VITALS: BP 110/60
[2019-07-04] MEDS ORDERED: ASPI81 PO (11:27)
[2019-07-04] MEDS ORDERED: BENZ0.5T44 PO (11:28)
[2019-07-04] MEDS ORDERED: ACET-2247 PO (11:29)
[2019-07-04] MEDS ORDERED: VALS80TA2 PO (11:29)
[2019-07-04] MEDS ORDERED: ALPR0.255 PO (11:30)
[2019-07-04] MEDS ORDERED: DOCU-275 PO (11:31)
[2019-07-04] MEDS ORDERED: MOM30 PO (11:33)
[2019-07-04] MEDS ORDERED: TRAM50TA4 PO (11:34)
== END 2019-07-04 11:40 | DRG 948 ==
LOC: EMS 19:22 → 5N 23:30
PROVIDERS: ADMIT Internal Medicine; ATTEND Internal Medicine
DX: R53.1 Weakness (principal); E87.1 Hypo-osmolality and hyponatremia; R13.10 Dysphagia, unspecified; E87.6 Hypokalemia; R62.7 Adult failure to thrive; I10 Essential (primary) hypertension; E86.1 Hypovolemia; F41.1 Generalized anxiety disorder; G89.29 Other chronic pain; I25.10 Atherosclerotic heart disease of native coronary artery without angina pectoris; R47.02 Dysphasia; Z66 Do not resuscitate; Z85.3 Personal history of malignant neoplasm of breast; Z88.5 Allergy status to narcotic agent; Z23 Encounter for immunization
CPT/HCPCS: 74177; 84132; 84439; 84443; 87081; 92610; 93005; 96374; 97110; 97162; 97530; J1170; J1885; J2405; J3480; J7030; J7050

== ENCOUNTER 2019-10-05 07:36 | Inpatient (IN) | payer MEDICARE, OTHER ==
[~2019-10-05] VITALS: Ht 165.1 cm; Wt 56.0 kg
[~2019-10-05 07:36] MED LIST changes: +ACET-2247 PO; +ALPR0.255 PO; +ASPI-728 PO; -ASPI-825 PO; -D-AM10TA2 PO; +DOCU-275 PO; +MOM30 PO; -RISP.5 PO; +VALS80TA2 PO
[2019-10-05] MEDS ORDERED: ONDANSETRON HCL 4 MG/2 ML VIAL IVP ONE (08:15)
[2019-10-05] MEDS ORDERED: SODIUM CHLORIDE 0.9% 1,000 ML IV ONE ×2 (08:15→13:00)
[2019-10-05] MEDS ORDERED: PB/HYOSCY/ATR/SCOP/LIDO/MAALOX 55 ML BOTTLE PO ONE (08:15)
[2019-10-05 09:01] LABS: BASOPHILS % (AUTO) 0.6 % (0.0-2.0); HEMATOCRIT 41.3 % (36-46); HEMOGLOBIN 14.2 g/dL (12.0-16.0); LYMPHOCYTES # (AUTO) 1.6 K/uL (1.0-4.8); LYMPHOCYTES % (AUTO) 24.9 % (22.0-44.0); MEAN CORPUSCULAR HEMOGLOBIN 30.3 pg (26.0-34.0); MEAN CORPUSCULAR HGB CONC 34.4 G/dL (31.0-37.0); MEAN CORPUSCULAR VOLUME 88 fL (80-100); MONOCYTES # (AUTO) 0.5 K/uL (0.1-1.0); MONOCYTES % (AUTO) 7.3 % (2.0-9.0); NEUTROPHILS # (AUTO) 4.4 K/uL (1.8-7.7); NEUTROPHILS % (AUTO) 66.2 % (40.0-70.0); PLATELET COUNT (AUTO) 284 K/uL (150-450); RED BLOOD CELL COUNT(AUTO) 4.69 MIL/uL (4.00-5.20); RED CELL DISTRIBUTION WIDTH 13.9 % (11.5-14.5)
[2019-10-05 09:15] LABS: ALANINE AMINOTRANSFERASE 27 U/L (12-78); ALBUMIN 3.6 g/dL (3.4-5.0); ALKALINE PHOSPHATASE 94 U/L (46-116); ANION GAP 11 mmol/L (8-16); ASPARTATE AMINOTRANSFERASE 21 U/L (15-37); BILIRUBIN,TOTAL 0.5 mg/dL (0.1-1.0); CALCIUM, TOTAL 9.3 mg/dL (8.8-10.5); CARBON DIOXIDE 24 mmol/L (22-29); CHLORIDE 94 mmol/L (98-107); CREATININE 0.78 mg/dL (0.60-1.30); GLUCOSE,RANDOM 100 mg/dL (70-110); LIPASE 78 U/L (73-393); SODIUM SERUM 129 mmol/L (136-145); UREA NITROGEN, BLOOD 11 mg/dL (7-18)
[2019-10-05 09:23] LABS: B-TYPE NATRIURETIC PEPTIDE 179 pg/mL (0-100); GLOMERULAR FILTR. RATE CALC > 60 mL/min (>60); POTASSIUM 2.9 mmol/L (3.5-5.1)
[2019-10-05] MEDS ORDERED: HYDROCODONE/ACETAMINOPHEN 5-325 MG TABLET PO ONE (09:30)
[2019-10-05] MEDS ORDERED: POTASSIUM CHLORIDE 20 MEQ ER TABLET PO ONE (09:30)
[2019-10-05 09:42] LABS: APPEARANCE,URINE CLEAR (CLEAR); BILIRUBIN,URINE NEGATIVE (NEGATIVE); GLUCOSE, URINE (UA) NEGATIVE (NEGATIVE); KETONES,URINE NEGATIVE (NEGATIVE); LEUKOCYTE ESTERASE ,URINE NEGATIVE (NEGATIVE); NITRATE,URINE NEGATIVE (NEGATIVE); OCCULT BLOOD,URINE NEGATIVE (NEGATIVE); PH,URINE 7.5 (5.0-8.0); PROTEIN,URINE NEGATIVE (NEGATIVE); UROBILINOGEN,URINE 0.2 mg/dL (<=1.0)
[2019-10-05] MEDS ORDERED: SODIUM CHLORIDE 0.9% 100 ML ONE (10:27)
[2019-10-05] MEDS ORDERED: IOVERSOL 350 MG/ML 100 ML VIAL ONE (10:27)
[2019-10-05] MEDS ORDERED: ONDANSETRON HCL 4 MG/2 ML VIAL IVP PRN (13:00)
[2019-10-05] MEDS ORDERED: POTASSIUM CHL 10 MEQ/WATER 50 ML IV PRN (13:00)
[2019-10-05] MEDS ORDERED: ACETAMINOPHEN 325 MG TABLET PO PRN (13:00)
[2019-10-05] MEDS ORDERED: MAGNESIUM HYDROXIDE SUSPENSION 30 ML UDCUP PO PRN (13:00)
[2019-10-05] MEDS ORDERED: POTASSIUM CHLORIDE 20 MEQ ER TABLET PO PRN (13:00)
[2019-10-05] MEDS ORDERED: DiphenhydrAMINE HCL 25 MG CAPSULE PO ONE (13:15)
[2019-10-05] MEDS ORDERED: HALOPERIDOL 5 MG TABLET PO ONE (13:15)
[2019-10-05] MEDS ORDERED: LORazepam 1 MG TABLET PO ONE (13:15)
[2019-10-05 13:42] VITALS: BP 174/77
[2019-10-05] MEDS: AmLODIPine BESYLATE 5 MG TABLET PO SCH (13:49)
[2019-10-05] MEDS: MULTIVITAMINS WITH MINERALS, THERAPEUTIC TABLET PO SCH (13:49)
[2019-10-05 15:10] VITALS: BP 160/76
[2019-10-05] MEDS: HYDROCODONE/ACETAMINOPHEN 5-325 MG TABLET PO PRN ×3 (15:41→23:44)
[2019-10-05] MEDS: HEPARIN SODIUM,PORCINE 5,000 UNITS/ML VIAL SQ SCH ×2 (15:41→23:33)
[2019-10-05] MEDS: ALPRAZolam 0.5 MG TABLET PO PRN (17:31)
[2019-10-05 19:29] VITALS: BP 151/89
[2019-10-05] MEDS: FAMOTIDINE 20 MG TABLET PO SCH (19:36)
[2019-10-06] MEDS: HYDROCODONE/ACETAMINOPHEN 5-325 MG TABLET PO PRN ×4 (04:00→20:30)
[2019-10-06 04:14] VITALS: BP 121/46
[2019-10-06 08:06] VITALS: BP 160/77
[2019-10-06] MEDS: FAMOTIDINE 20 MG TABLET PO SCH ×2 (09:02→20:30)
[2019-10-06] MEDS: ALPRAZolam 0.5 MG TABLET PO PRN ×2 (09:02→17:07)
[2019-10-06] MEDS: HEPARIN SODIUM,PORCINE 5,000 UNITS/ML VIAL SQ SCH ×2 (09:02→16:16)
[2019-10-06] MEDS: AmLODIPine BESYLATE 5 MG TABLET PO SCH (09:02)
[2019-10-06] MEDS: MULTIVITAMINS WITH MINERALS, THERAPEUTIC TABLET PO SCH (09:03)
[2019-10-06] MEDS: ASPIRIN 81 MG CHEWABLE TABLET PO SCH (09:03)
[2019-10-06 16:47] VITALS: BP 147/78
[2019-10-06 19:38] VITALS: BP 155/77
[2019-10-07 00:06] VITALS: BP 126/63
[2019-10-07] MEDS: HEPARIN SODIUM,PORCINE 5,000 UNITS/ML VIAL SQ SCH ×2 (00:26→08:48)
[2019-10-07] MEDS: HYDROCODONE/ACETAMINOPHEN 5-325 MG TABLET PO PRN ×4 (00:30→13:07)
[2019-10-07] MEDS: ALPRAZolam 0.5 MG TABLET PO PRN (00:30)
[2019-10-07 04:52] VITALS: BP 117/63
[2019-10-07 07:08] LABS: ANION GAP 8 mmol/L (8-16); CARBON DIOXIDE 25 mmol/L (22-29); CHLORIDE 105 mmol/L (98-107); CREATININE 0.72 mg/dL (0.60-1.30); GLUCOSE,RANDOM 81 mg/dL (70-110); POTASSIUM 3.7 mmol/L (3.5-5.1); SODIUM SERUM 138 mmol/L (136-145); UREA NITROGEN, BLOOD 14 mg/dL (7-18)
[2019-10-07 07:14] LABS: GLOMERULAR FILTR. RATE CALC > 60 mL/min (>60)
[2019-10-07 07:50] VITALS: BP 133/60
[2019-10-07] MEDS: FAMOTIDINE 20 MG TABLET PO SCH (08:47)
[2019-10-07] MEDS: ASPIRIN 81 MG CHEWABLE TABLET PO SCH (08:48)
[2019-10-07] MEDS: AmLODIPine BESYLATE 5 MG TABLET PO SCH (08:48)
[2019-10-07] MEDS: MULTIVITAMINS WITH MINERALS, THERAPEUTIC TABLET PO SCH (08:48)
[2019-10-07 12:17] VITALS: BP 176/74
[2019-10-07 13:14] VITALS: BP 188/87
[2019-10-07] MEDS ORDERED: CloNIDine HCL 0.1 MG TABLET PO PRN (13:30)
[2019-10-07] MEDS ORDERED: QUET25TA PO (14:57)
[2019-10-07] MEDS ORDERED: SERT50TA12 PO (14:58)
[2019-10-07] MEDS ORDERED: CLON0.1T83 PO (14:59)
[2019-10-07] MEDS ORDERED: QUEtiapine FUMARATE 25 MG TABLET PO SCH (21:00)
[2019-10-07] MEDS ORDERED: SERTRALINE HCL 50 MG TABLET PO SCH (21:00)
== END 2019-10-07 14:15 | DRG 392 ==
LOC: EMS 07:38 → 6N 12:52
PROVIDERS: ADMIT Internal Medicine; ATTEND Internal Medicine
DX: K52.9 Noninfective gastroenteritis and colitis, unspecified (principal); E87.1 Hypo-osmolality and hyponatremia; E87.6 Hypokalemia; F41.9 Anxiety disorder, unspecified; I25.10 Atherosclerotic heart disease of native coronary artery without angina pectoris; I10 Essential (primary) hypertension; M19.90 Unspecified osteoarthritis, unspecified site; F25.1 Schizoaffective disorder, depressive type; M54.9 Dorsalgia, unspecified; G47.419 Narcolepsy without cataplexy; G89.29 Other chronic pain; Z66 Do not resuscitate; Z88.6 Allergy status to analgesic agent; Z91.5 Personal history of self-harm; Z82.49 Family history of ischemic heart disease and other diseases of the circulatory system; Z83.3 Family history of diabetes mellitus
CPT/HCPCS: 51701; 74022; 74177; 84132; 87081; 93005; 96374; 97162; J1644; J2405; J7030; J7050

== ENCOUNTER 2020-03-01 22:34 | Emergency (ER) | payer MEDICARE, OTHER ==
[~2020-03-01] VITALS: Ht 160 cm; Wt 56.8 kg
[~2020-03-01 22:34] MED LIST changes: -ALPR0.255 PO; +CLON0.1T83 PO; +QUET25TA PO; +SERT50TA12 PO
[2020-03-01] MEDS ORDERED: PALI3TAB14 PO (22:57)
[2020-03-01] MEDS ORDERED: AMLO-257 PO (22:57)
[2020-03-01] MEDS ORDERED: SERT20OR6 PO (22:57)
[2020-03-01] MEDS ORDERED: MODA100T65 PO (22:57)
[2020-03-01] MEDS ORDERED: POTA20TA83 PO (22:57)
[2020-03-01] MEDS ORDERED: ALPR-340 PO (22:57)
[2020-03-01] MEDS ORDERED: ASPIRIN 81 MG CHEWABLE TABLET PO ONE (23:00)
[2020-03-01 23:18] LABS: BASOPHILS % (AUTO) 0.4 % (0.0-2.0); EOSINOPHILS % (AUTO) 2.4 % (1.0-6.0); HEMATOCRIT 40.8 % (36-46); HEMOGLOBIN 13.4 g/dL (12.0-16.0); LYMPHOCYTES % (AUTO) 29.6 % (22.0-44.0); MEAN CORPUSCULAR HEMOGLOBIN 30.1 pg (26.0-34.0); MEAN CORPUSCULAR HGB CONC 32.9 G/dL (31.0-37.0); MEAN CORPUSCULAR VOLUME 91 fL (80-100); MONOCYTES # (AUTO) 0.6 K/uL (0.1-1.0); MONOCYTES % (AUTO) 8.1 % (2.0-9.0); NEUTROPHILS # (AUTO) 4.1 K/uL (1.8-7.7); NEUTROPHILS % (AUTO) 59.5 % (40.0-70.0); PLATELET COUNT (AUTO) 282 K/uL (150-450); RED BLOOD CELL COUNT(AUTO) 4.46 MIL/uL (4.00-5.20); RED CELL DISTRIBUTION WIDTH 13.9 % (11.5-14.5)
[2020-03-01 23:33] LABS: PROTHROMBIN TIME 10.4 SEC (9.4-11.6)
[2020-03-01 23:36] LABS: ANION GAP 6 mmol/L (8-16); CARBON DIOXIDE 29 mmol/L (22-29); CHLORIDE 107 mmol/L (98-107); CREATININE 0.75 mg/dL (0.60-1.30); GLUCOSE,RANDOM 103 mg/dL (70-110); POTASSIUM 3.3 mmol/L (3.5-5.1); SODIUM SERUM 142 mmol/L (136-145); UREA NITROGEN, BLOOD 17 mg/dL (7-18)
[2020-03-01 23:39] LABS: B-TYPE NATRIURETIC PEPTIDE 121 pg/mL (0-100)
[2020-03-01 23:42] LABS: GLOMERULAR FILTR. RATE CALC > 60 mL/min (>60)
[2020-03-02 00:01] LABS: ALANINE AMINOTRANSFERASE 22 U/L (12-78); ALBUMIN 3.3 g/dL (3.4-5.0); ALKALINE PHOSPHATASE 106 U/L (46-116); ASPARTATE AMINOTRANSFERASE 21 U/L (15-37); BILIRUBIN,TOTAL 0.2 mg/dL (0.1-1.0); CREATINE KINASE, TOTAL ONLY 91 U/L (26-192)
[2020-03-02] MEDS ORDERED: ONDANSETRON HCL 4 MG/2 ML VIAL IVP ONE (02:30)
[2020-03-02] MEDS ORDERED: POTASSIUM CHLORIDE 20 MEQ ER TABLET PO ONE (02:30)
[2020-03-02 02:45] VITALS: BP 131/73
== END 2020-03-02 03:18 | disposition home or self-care (01) ==
LOC: EMS 22:34
DX: R07.89 Other chest pain (principal); F41.9 Anxiety disorder, unspecified; E87.6 Hypokalemia; R06.02 Shortness of breath; I25.10 Atherosclerotic heart disease of native coronary artery without angina pectoris; I11.9 Hypertensive heart disease without heart failure; F20.9 Schizophrenia, unspecified; G89.29 Other chronic pain; Z88.5 Allergy status to narcotic agent
CPT/HCPCS: 36415; 71045; 80053; 82550; 83880; 84484; 85025; 85610; 85730; 93005; 96374; 99285; J2405

== ENCOUNTER 2020-03-22 23:43 | Emergency (ER) | payer MEDICARE, OTHER ==
[~2020-03-22] VITALS: Ht 160 cm; Wt 67.2 kg
[~2020-03-22 23:43] MED LIST changes: -ACET-2247 PO; +ALPR-340 PO; +AMLO-257 PO; -ASPI-728 PO; -BENZ0.5T44 PO; -CLON0.1T83 PO; -DOCU-275 PO; +MODA100T65 PO; -MOM30 PO; +PALI3TAB14 PO; +POTA20TA83 PO; -QUET25TA PO; +SERT20OR6 PO; -SERT50TA12 PO; -TRAM50TA4 PO; -VALS80TA2 PO
[2020-03-23] MEDS ORDERED: HYDROCODONE/ACETAMINOPHEN 5-325 MG TABLET PO ONE (00:30)
[2020-03-23 01:19] VITALS: BP 176/79
== END 2020-03-23 01:22 | disposition home or self-care (01) ==
LOC: EMS 23:43
DX: M54.5 Low back pain (principal); G89.29 Other chronic pain; F41.9 Anxiety disorder, unspecified; I25.10 Atherosclerotic heart disease of native coronary artery without angina pectoris; I11.9 Hypertensive heart disease without heart failure; F20.9 Schizophrenia, unspecified; Z88.5 Allergy status to narcotic agent

== ENCOUNTER 2020-05-02 22:07 | Emergency (ER) | payer MEDICARE, OTHER ==
[~2020-05-02] VITALS: Ht 160 cm; Wt 59.1 kg
[2020-05-03] MEDS ORDERED: HYDR-4455 PO (00:43)
[2020-05-03] MEDS ORDERED: HYDROCODONE/ACETAMINOPHEN 5-325 MG TABLET PO ONE (01:30)
[2020-05-03 02:18] VITALS: BP 178/76
== END 2020-05-03 02:27 | disposition home or self-care (01) ==
LOC: EMS 22:07
DX: F20.9 Schizophrenia, unspecified (principal); G89.29 Other chronic pain; M54.9 Dorsalgia, unspecified; F12.90 Cannabis use, unspecified, uncomplicated; Z76.0 Encounter for issue of repeat prescription

== ENCOUNTER 2020-05-07 20:00 | Emergency (ER) | payer MEDICARE, OTHER ==
[~2020-05-07] VITALS: Ht 160 cm; Wt 64.3 kg
[~2020-05-07 20:00] MED LIST changes: +HYDR-4455 PO
[2020-05-07 20:44] LABS: GLUCOSE,POINT OF CARE 79 MG/DL (70-110)
[2020-05-07 21:02] LABS: BASOPHILS % (AUTO) 0.6 % (0.0-2.0); EOSINOPHILS % (AUTO) 1.3 % (1.0-6.0); HEMATOCRIT 44.2 % (36-46); HEMOGLOBIN 14.8 g/dL (12.0-16.0); LYMPHOCYTES # (AUTO) 1.6 K/uL (1.0-4.8); LYMPHOCYTES % (AUTO) 23.5 % (22.0-44.0); MEAN CORPUSCULAR HGB CONC 33.4 G/dL (31.0-37.0); MEAN CORPUSCULAR VOLUME 90 fL (80-100); MONOCYTES # (AUTO) 0.5 K/uL (0.1-1.0); MONOCYTES % (AUTO) 6.9 % (2.0-9.0); NEUTROPHILS # (AUTO) 4.5 K/uL (1.8-7.7); NEUTROPHILS % (AUTO) 67.7 % (40.0-70.0); PLATELET COUNT (AUTO) 235 K/uL (150-450); RED BLOOD CELL COUNT(AUTO) 4.91 MIL/uL (4.00-5.20); RED CELL DISTRIBUTION WIDTH 13.9 % (11.5-14.5)
[2020-05-07 21:24] LABS: ALANINE AMINOTRANSFERASE 32 U/L (12-78); ALBUMIN 3.7 g/dL (3.4-5.0); ALKALINE PHOSPHATASE 113 U/L (46-116); ANION GAP 8 mmol/L (8-16); ASPARTATE AMINOTRANSFERASE 29 U/L (15-37); BILIRUBIN,TOTAL 0.2 mg/dL (0.1-1.0); CALCIUM, TOTAL 8.9 mg/dL (8.8-10.5); CARBON DIOXIDE 29 mmol/L (22-29); CHLORIDE 104 mmol/L (98-107); CREATININE 0.81 mg/dL (0.60-1.30); GLUCOSE,RANDOM 92 mg/dL (70-110); SODIUM SERUM 141 mmol/L (136-145); TOTAL PROTEIN, SERUM 6.7 g/dL (6.4-8.2); UREA NITROGEN, BLOOD 14 mg/dL (7-18)
[2020-05-07 21:27] LABS: GLOMERULAR FILTR. RATE CALC > 60 mL/min (>60)
[2020-05-07 22:00] LABS: APPEARANCE,URINE CLEAR (CLEAR); BILIRUBIN,URINE NEGATIVE (NEGATIVE); GLUCOSE, URINE (UA) NEGATIVE (NEGATIVE); KETONES,URINE NEGATIVE (NEGATIVE); LEUKOCYTE ESTERASE ,URINE NEGATIVE (NEGATIVE); NITRATE,URINE NEGATIVE (NEGATIVE); OCCULT BLOOD,URINE NEGATIVE (NEGATIVE); PH,URINE 7.5 (5.0-8.0); PROTEIN,URINE NEGATIVE (NEGATIVE); UROBILINOGEN,URINE 0.2 mg/dL (<=1.0)
[2020-05-07] MEDS ORDERED: POTASSIUM CHLORIDE 20 MEQ ER TABLET PO ONE (22:15)
[2020-05-07 22:29] LABS: RBC,URINE None Seen /HPF (0-2); WBC,URINE 0-2 /HPF (0-5)
[2020-05-07 22:30] LABS: BACTERIA,URINE None Seen /HPF (None Seen); SQUAMOUS EPITHELIAL CELL,UR Rare /LPF (None Seen)
[2020-05-07 22:45] LABS: B-TYPE NATRIURETIC PEPTIDE 150 pg/mL (0-100)
[2020-05-07 22:54] LABS: CREATINE KINASE, TOTAL ONLY 163 U/L (26-192)
[2020-05-07] MEDS ORDERED: HYDROCODONE/ACETAMINOPHEN 10-325 MG TABLET PO ONE (23:30)
[2020-05-08 02:58] VITALS: BP 137/75
== END 2020-05-08 03:12 | disposition home or self-care (01) ==
LOC: EMS 20:00
DX: R42 Dizziness and giddiness (principal); I11.9 Hypertensive heart disease without heart failure; I25.10 Atherosclerotic heart disease of native coronary artery without angina pectoris
CPT/HCPCS: 70450; 93005; 36415-L1; 36415-TC; 71045-TC

== ENCOUNTER 2020-06-02 17:19 | Emergency (ER) | payer MEDICARE, MEDICAID ==
[~2020-06-02] VITALS: Ht 157.5 cm; Wt 63.6 kg
[2020-06-02 18:25] VITALS: BP 163/67
[2020-06-02 18:54] LABS: BASOPHILS % (AUTO) 0.4 % (0.0-2.0); EOSINOPHILS % (AUTO) 0.9 % (1.0-6.0); HEMATOCRIT 43.2 % (36-46); HEMOGLOBIN 14.6 g/dL (12.0-16.0); LYMPHOCYTES # (AUTO) 1.4 K/uL (1.0-4.8); LYMPHOCYTES % (AUTO) 21.8 % (22.0-44.0); MEAN CORPUSCULAR HEMOGLOBIN 30.1 pg (26.0-34.0); MEAN CORPUSCULAR HGB CONC 33.7 G/dL (31.0-37.0); MEAN CORPUSCULAR VOLUME 89 fL (80-100); MONOCYTES # (AUTO) 0.4 K/uL (0.1-1.0); MONOCYTES % (AUTO) 6.9 % (2.0-9.0); NEUTROPHILS # (AUTO) 4.4 K/uL (1.8-7.7); PLATELET COUNT (AUTO) 229 K/uL (150-450); RED BLOOD CELL COUNT(AUTO) 4.83 MIL/uL (4.00-5.20); RED CELL DISTRIBUTION WIDTH 14.5 % (11.5-14.5)
[2020-06-02 19:03] LABS: CREATININE 0.91 mg/dL (0.60-1.30); POTASSIUM 3.2 mmol/L (3.5-5.1)
[2020-06-02 19:24] LABS: PROTHROMBIN TIME 10.5 SEC (9.4-11.6)
[2020-06-02 19:28] LABS: ALBUMIN 3.8 g/dL (3.4-5.0); BILIRUBIN,TOTAL 0.3 mg/dL (0.1-1.0); TOTAL PROTEIN, SERUM 6.9 g/dL (6.4-8.2)
[2020-06-02 20:07] LABS: APPEARANCE,URINE CLEAR (CLEAR); BILIRUBIN,URINE NEGATIVE (NEGATIVE); GLUCOSE, URINE (UA) NEGATIVE (NEGATIVE); KETONES,URINE NEGATIVE (NEGATIVE); LEUKOCYTE ESTERASE ,URINE NEGATIVE (NEGATIVE); NITRATE,URINE NEGATIVE (NEGATIVE); OCCULT BLOOD,URINE TRACE (NEGATIVE); PH,URINE 7.5 (5.0-8.0); PROTEIN,URINE NEGATIVE (NEGATIVE); UROBILINOGEN,URINE 0.2 mg/dL (<=1.0)
[2020-06-02 20:15] LABS: BACTERIA,URINE None Seen /HPF (None Seen); WBC,URINE None Seen /HPF (0-5)
[2020-06-02 20:16] LABS: RBC,URINE 0-2 /HPF (0-2); SQUAMOUS EPITHELIAL CELL,UR Rare /LPF (None Seen)
[2020-06-02] MEDS ORDERED: POTASSIUM CHLORIDE 20 MEQ ER TABLET PO ONE (20:30)
== END 2020-06-02 22:14 | disposition home or self-care (01) ==
LOC: EMS 17:19
DX: E87.6 Hypokalemia (principal); I25.10 Atherosclerotic heart disease of native coronary artery without angina pectoris; I11.9 Hypertensive heart disease without heart failure; F12.90 Cannabis use, unspecified, uncomplicated
CPT/HCPCS: 93005; 36415-L1; 36415-TC; 71045-TC

== ENCOUNTER 2020-07-18 13:16 | Emergency (ER) | payer MEDICARE, OTHER ==
[~2020-07-18] VITALS: Ht 157.5 cm; Wt 63.6 kg
[2020-07-18] MEDS ORDERED: ONDANSETRON HCL 4 MG/2 ML VIAL IVP ONE (14:15)
[2020-07-18] MEDS ORDERED: ACETAMINOPHEN 1000 MG/ISO-OSM 100 ML IV ONE (14:15)
[2020-07-18] MEDS ORDERED: SODIUM CHLORIDE 0.9% 1,000 ML IV ONE (14:15)
[2020-07-18 15:18] LABS: BASOPHILS % (AUTO) 0.3 % (0.0-2.0); EOSINOPHILS % (AUTO) 0.5 % (1.0-6.0); HEMATOCRIT 45.4 % (36-46); LYMPHOCYTES # (AUTO) 1.5 K/uL (1.0-4.8); MEAN CORPUSCULAR HEMOGLOBIN 29.7 pg (26.0-34.0); MEAN CORPUSCULAR VOLUME 90 fL (80-100); MONOCYTES # (AUTO) 0.4 K/uL (0.1-1.0); MONOCYTES % (AUTO) 4.2 % (2.0-9.0); NEUTROPHILS # (AUTO) 7.2 K/uL (1.8-7.7); PLATELET COUNT (AUTO) 292 K/uL (150-450); RED BLOOD CELL COUNT(AUTO) 5.05 MIL/uL (4.00-5.20); RED CELL DISTRIBUTION WIDTH 14.3 % (11.5-14.5)
[2020-07-18 15:28] LABS: CALCIUM, TOTAL 8.8 mg/dL (8.8-10.5); CREATININE 0.93 mg/dL (0.60-1.30); POTASSIUM 3.1 mmol/L (3.5-5.1)
[2020-07-18 15:34] LABS: ALBUMIN 3.9 g/dL (3.4-5.0); BILIRUBIN,TOTAL 0.4 mg/dL (0.1-1.0); TOTAL PROTEIN, SERUM 7.5 g/dL (6.4-8.2)
[2020-07-18 15:36] LABS: LACTIC ACID 1.1 mmol/L (0.4-2.0)
[2020-07-18 16:34] LABS: APPEARANCE,URINE CLEAR (CLEAR); BILIRUBIN,URINE NEGATIVE (NEGATIVE); GLUCOSE, URINE (UA) NEGATIVE (NEGATIVE); KETONES,URINE NEGATIVE (NEGATIVE); LEUKOCYTE ESTERASE ,URINE NEGATIVE (NEGATIVE); NITRATE,URINE NEGATIVE (NEGATIVE); OCCULT BLOOD,URINE NEGATIVE (NEGATIVE); PH,URINE 7.5 (5.0-8.0); PROTEIN,URINE NEGATIVE (NEGATIVE); UROBILINOGEN,URINE 0.2 mg/dL (<=1.0)
[2020-07-18] MEDS ORDERED: KETOROLAC TROMETHAMINE 30 MG/ML VIAL IVP ONE (16:45)
[2020-07-18] MEDS ORDERED: HydrOXYzine PAMOATE 50 MG CAPSULE PO ONE (17:45)
[2020-07-18 20:22] VITALS: BP 148/95
== END 2020-07-18 20:30 | disposition home or self-care (01) ==
LOC: EMS 13:16
DX: R10.84 Generalized abdominal pain (principal); I10 Essential (primary) hypertension; I51.9 Heart disease, unspecified; F41.9 Anxiety disorder, unspecified; F12.90 Cannabis use, unspecified, uncomplicated; Z85.9 Personal history of malignant neoplasm, unspecified; Z86.73 Personal history of transient ischemic attack (TIA), and cerebral infarction without residual deficits
CPT/HCPCS: 36415; 71045; 74176; 80053; 81003; 83605; 83690; 84484; 85025; 93005; 96365; 96375; 99285; J0131; J1885; J2405; J7030

== ENCOUNTER 2021-03-26 11:11 | Emergency (ER) | payer MEDICARE, OTHER ==
[~2021-03-26] VITALS: Ht 160 cm; Wt 59.1 kg
[2021-03-26 11:46] LABS: BASOPHILS % (AUTO) 0.4 % (0.0-2.0); EOSINOPHILS % (AUTO) 1.4 % (1.0-6.0); HEMOGLOBIN 14.1 g/dL (12.0-16.0); LYMPHOCYTES # (AUTO) 1.5 K/uL (1.0-4.8); LYMPHOCYTES % (AUTO) 21.3 % (22.0-44.0); MEAN CORPUSCULAR HEMOGLOBIN 27.8 pg (26.0-34.0); MEAN CORPUSCULAR HGB CONC 32.8 G/dL (31.0-37.0); MEAN CORPUSCULAR VOLUME 85 fL (80-100); MONOCYTES # (AUTO) 0.4 K/uL (0.1-1.0); MONOCYTES % (AUTO) 5.4 % (2.0-9.0); NEUTROPHILS # (AUTO) 5.1 K/uL (1.8-7.7); NEUTROPHILS % (AUTO) 71.5 % (40.0-70.0); PLATELET COUNT (AUTO) 243 K/uL (150-450); RED BLOOD CELL COUNT(AUTO) 5.07 MIL/uL (4.00-5.20); RED CELL DISTRIBUTION WIDTH 14.7 % (11.5-14.5)
[2021-03-26 11:55] LABS: ANION GAP 13 mmol/L (8-16); CALCIUM, TOTAL 8.6 mg/dL (8.8-10.5); CARBON DIOXIDE 26 mmol/L (22-29); CHLORIDE 104 mmol/L (98-107); CREATININE 0.65 mg/dL (0.60-1.30); GLUCOSE,RANDOM 111 mg/dL (70-110); SODIUM SERUM 143 mmol/L (136-145); UREA NITROGEN, BLOOD 9 mg/dL (7-18)
[2021-03-26 11:57] LABS: GLOMERULAR FILTR. RATE CALC > 60 mL/min (>60)
[2021-03-26 12:02] LABS: ALANINE AMINOTRANSFERASE 21 U/L (12-78); ALBUMIN 3.4 g/dL (3.4-5.0); ALKALINE PHOSPHATASE 104 U/L (46-116); ASPARTATE AMINOTRANSFERASE 16 U/L (15-37); BILIRUBIN,TOTAL 0.4 mg/dL (0.1-1.0)
[2021-03-26] MEDS ORDERED: POTASSIUM CHLORIDE 20 MEQ ER TABLET PO ONE (12:45)
[2021-03-26 13:15] VITALS: BP 138/67
== END 2021-03-26 14:14 | disposition home or self-care (01) ==
LOC: EMS 11:15
DX: R55 Syncope and collapse (principal); R42 Dizziness and giddiness; I10 Essential (primary) hypertension; F41.9 Anxiety disorder, unspecified; I25.10 Atherosclerotic heart disease of native coronary artery without angina pectoris
CPT/HCPCS: 80053; 84484; 85025; 93005; 99284

== ENCOUNTER 2021-05-24 16:37 | Emergency (ER) | payer MEDICARE, OTHER ==
[~2021-05-24] VITALS: Ht 161.3 cm; Wt 59.1 kg
[2021-05-24] MEDS ORDERED: PB/HYOSCY/ATR/SCOP/LIDO/MAALOX 55 ML BOTTLE PO ONE (18:00)
[2021-05-24] MEDS ORDERED: SODIUM CHLORIDE 0.9% 100 ML ONE (18:13)
[2021-05-24] MEDS ORDERED: IOHEXOL 350 MG/ML 100 ML VIAL ONE (18:13)
[2021-05-24 18:23] LABS: BASOPHILS % (AUTO) 0.3 % (0.0-2.0); EOSINOPHILS % (AUTO) 1.4 % (1.0-6.0); HEMATOCRIT 42.5 % (36-46); HEMOGLOBIN 13.9 g/dL (12.0-16.0); LYMPHOCYTES # (AUTO) 2.2 K/uL (1.0-4.8); LYMPHOCYTES % (AUTO) 26.5 % (22.0-44.0); MEAN CORPUSCULAR HEMOGLOBIN 27.7 pg (26.0-34.0); MEAN CORPUSCULAR HGB CONC 32.8 G/dL (31.0-37.0); MEAN CORPUSCULAR VOLUME 85 fL (80-100); MONOCYTES # (AUTO) 0.6 K/uL (0.1-1.0); MONOCYTES % (AUTO) 7.3 % (2.0-9.0); NEUTROPHILS # (AUTO) 5.3 K/uL (1.8-7.7); NEUTROPHILS % (AUTO) 64.5 % (40.0-70.0); PLATELET COUNT (AUTO) 286 K/uL (150-450); RED BLOOD CELL COUNT(AUTO) 5.03 MIL/uL (4.00-5.20); RED CELL DISTRIBUTION WIDTH 15.4 % (11.5-14.5)
[2021-05-24 18:27] LABS: APPEARANCE,URINE CLEAR (CLEAR); BILIRUBIN,URINE NEGATIVE (NEGATIVE); GLUCOSE, URINE (UA) NEGATIVE (NEGATIVE); KETONES,URINE NEGATIVE (NEGATIVE); LEUKOCYTE ESTERASE ,URINE NEGATIVE (NEGATIVE); NITRATE,URINE NEGATIVE (NEGATIVE); OCCULT BLOOD,URINE NEGATIVE (NEGATIVE); PH,URINE 6.5 (5.0-8.0); PROTEIN,URINE NEGATIVE (NEGATIVE); UROBILINOGEN,URINE 0.2 mg/dL (<=1.0)
[2021-05-24 18:38] LABS: CALCIUM, TOTAL 8.8 mg/dL (8.8-10.5); CREATININE 0.96 mg/dL (0.60-1.30); POTASSIUM 3.2 mmol/L (3.5-5.1)
[2021-05-24 19:04] LABS: ALBUMIN 3.5 g/dL (3.4-5.0); BILIRUBIN,TOTAL 0.3 mg/dL (0.1-1.0); TOTAL PROTEIN, SERUM 7.2 g/dL (6.4-8.2)
[2021-05-24] MEDS ORDERED: POTASSIUM CHLORIDE 20 MEQ ER TABLET PO ONE (19:15)
[2021-05-24] MEDS ORDERED: HYDROCODONE/ACETAMINOPHEN 5-325 MG TABLET PO ONE (19:45)
[2021-05-24] MEDS ORDERED: MORPHINE SULFATE 2 MG/ML SYRINGE IVP ONE (20:00)
[2021-05-24] MEDS ORDERED: PANTOPRAZOLE SODIUM 40 MG/VIAL IVP ONE (20:00)
[2021-05-24] MEDS ORDERED: ONDANSETRON HCL 4 MG/2 ML VIAL IVP ONE (20:00)
[2021-05-24 20:52] VITALS: BP 124/78
== END 2021-05-24 20:00 | disposition home or self-care (01) ==
LOC: EMS 16:41
DX: G89.29 Other chronic pain (principal); R10.9 Unspecified abdominal pain; M54.9 Dorsalgia, unspecified; F41.9 Anxiety disorder, unspecified; Z88.5 Allergy status to narcotic agent; Z79.899 Other long term (current) drug therapy
CPT/HCPCS: 36415; 74022; 74177; 80053; 81003; 82550; 83690; 83880; 84484; 85025; 93005; 96374; 96375; 99285; C9113; J2405; J7050; Q9967

== ENCOUNTER 2021-06-26 11:11 | Inpatient (IN) | payer MEDICARE, OTHER ==
[~2021-06-26] VITALS: Ht 160 cm; Wt 56.8 kg
[~2021-06-26 11:11] MED LIST changes: +POTA-206 PO; -POTA20TA83 PO
[2021-06-26 12:59] LABS: BASOPHILS % (AUTO) 0.5 % (0.0-2.0); EOSINOPHILS % (AUTO) 0.4 % (1.0-6.0); HEMATOCRIT 45.4 % (36-46); HEMOGLOBIN 14.8 g/dL (12.0-16.0); LYMPHOCYTES # (AUTO) 1.7 K/uL (1.0-4.8); LYMPHOCYTES % (AUTO) 18.5 % (22.0-44.0); MEAN CORPUSCULAR HEMOGLOBIN 27.8 pg (26.0-34.0); MEAN CORPUSCULAR HGB CONC 32.6 G/dL (31.0-37.0); MEAN CORPUSCULAR VOLUME 85 fL (80-100); MONOCYTES # (AUTO) 0.4 K/uL (0.1-1.0); MONOCYTES % (AUTO) 4.6 % (2.0-9.0); NEUTROPHILS # (AUTO) 6.9 K/uL (1.8-7.7); PLATELET COUNT (AUTO) 265 K/uL (150-450); RED BLOOD CELL COUNT(AUTO) 5.33 MIL/uL (4.00-5.20); RED CELL DISTRIBUTION WIDTH 15.4 % (11.5-14.5)
[2021-06-26 13:07] LABS: ANION GAP 8 mmol/L (8-16); CALCIUM, TOTAL 9.3 mg/dL (8.8-10.5); CARBON DIOXIDE 30 mmol/L (22-29); CHLORIDE 103 mmol/L (98-107); CREATININE 0.89 mg/dL (0.60-1.30); GLOMERULAR FILTR. RATE CALC 60 mL/min (>60); GLUCOSE,RANDOM 136 mg/dL (70-110); POTASSIUM 3.5 mmol/L (3.5-5.1); SODIUM SERUM 141 mmol/L (136-145); UREA NITROGEN, BLOOD 13 mg/dL (7-18)
[2021-06-26 13:13] LABS: ALANINE AMINOTRANSFERASE 25 U/L (12-78); ALBUMIN 3.7 g/dL (3.4-5.0); ALKALINE PHOSPHATASE 129 U/L (46-116); ASPARTATE AMINOTRANSFERASE 24 U/L (15-37); BILIRUBIN,TOTAL 0.2 mg/dL (0.1-1.0); LIPASE 65 U/L (73-393); TOTAL PROTEIN, SERUM 7.7 g/dL (6.4-8.2)
[2021-06-26 13:34] LABS: LACTIC ACID 2.1 mmol/L (0.4-2.0)
[2021-06-26] MEDS ORDERED: IOHEXOL 350 MG/ML 100 ML VIAL ONE (13:44)
[2021-06-26] MEDS ORDERED: SODIUM CHLORIDE 0.9% 100 ML ONE (13:44)
[2021-06-26] MEDS ORDERED: SODIUM CHLORIDE 0.9% 1,700 ML IV ONE (13:45)
[2021-06-26 14:02] LABS: PROTHROMBIN TIME 10.2 SEC (9.4-11.6)
[2021-06-26 14:05] LABS: B-TYPE NATRIURETIC PEPTIDE 109 pg/mL (0-100)
[2021-06-26] MEDS ORDERED: MORPHINE SULFATE 4 MG/ML SYRINGE IVP ONE (14:30)
[2021-06-26] MEDS ORDERED: ONDANSETRON HCL 4 MG/2 ML VIAL IVP ONE (14:30)
[2021-06-26 15:44] LABS: APPEARANCE,URINE CLEAR (CLEAR); BILIRUBIN,URINE NEGATIVE (NEGATIVE); GLUCOSE, URINE (UA) NEGATIVE (NEGATIVE); KETONES,URINE NEGATIVE (NEGATIVE); LEUKOCYTE ESTERASE ,URINE NEGATIVE (NEGATIVE); NITRATE,URINE NEGATIVE (NEGATIVE); OCCULT BLOOD,URINE NEGATIVE (NEGATIVE); PROTEIN,URINE NEGATIVE (NEGATIVE); UROBILINOGEN,URINE 0.2 mg/dL (<=1.0)
[2021-06-26] MEDS: AmLODIPine BESYLATE 5 MG TABLET PO SCH (15:45)
[2021-06-26] MEDS ORDERED: ONDANSETRON HCL 4 MG/2 ML VIAL IVP PRN (15:45)
[2021-06-26] MEDS ORDERED: ACETAMINOPHEN 325 MG TABLET PO PRN (15:45)
[2021-06-26] MEDS ORDERED: CefTRIAXone 1 GM/DEXTROSE 50 ML IV ONE (15:45)
[2021-06-26] MEDS: HEPARIN SODIUM,PORCINE 5,000 UNITS/ML VIAL SQ SCH ×2 (16:23→23:51)
[2021-06-26] MEDS: ASPIRIN 81 MG CHEWABLE TABLET PO SCH (16:23)
[2021-06-26 16:36] LABS: COVID AG,FIA SOURCE NASOPHARYNGEAL
[2021-06-26] MEDS: OxyCODONE HCL/ACETAMINOPHEN 5-325 MG TABLET PO PRN ×2 (18:17→21:37)
[2021-06-26] MEDS: DOCUSATE SODIUM 100 MG CAPSULE PO SCH (20:27)
[2021-06-26] MEDS: FAMOTIDINE 20 MG TABLET PO SCH (20:27)
[2021-06-27] MEDS: OxyCODONE HCL/ACETAMINOPHEN 5-325 MG TABLET PO PRN ×4 (05:05→19:45)
[2021-06-27] MEDS ORDERED: PB/HYOSCY/ATR/SCOP/LIDO/MAALOX 55 ML BOTTLE PO ONE (06:00)
[2021-06-27] MEDS: HEPARIN SODIUM,PORCINE 5,000 UNITS/ML VIAL SQ SCH ×3 (07:21→23:31)
[2021-06-27] MEDS ORDERED: ONDANSETRON HCL 4 MG/2 ML VIAL IVP PRN (07:30)
[2021-06-27 08:42] VITALS: BP 150/70
[2021-06-27] MEDS: ASPIRIN 81 MG CHEWABLE TABLET PO SCH (09:02)
[2021-06-27] MEDS: FAMOTIDINE 20 MG TABLET PO SCH ×2 (09:02→20:14)
[2021-06-27] MEDS: GABAPENTIN 100 MG CAPSULE PO SCH ×3 (09:02→20:23)
[2021-06-27] MEDS: AmLODIPine BESYLATE 5 MG TABLET PO SCH (09:03)
[2021-06-27] MEDS: DOCUSATE SODIUM 100 MG CAPSULE PO SCH ×2 (09:03→20:14)
[2021-06-27 09:17] LABS: BASOPHILS % (AUTO) 0.6 % (0.0-2.0); EOSINOPHILS % (AUTO) 1.8 % (1.0-6.0); HEMATOCRIT 41.7 % (36-46); HEMOGLOBIN 13.8 g/dL (12.0-16.0); LYMPHOCYTES # (AUTO) 1.8 K/uL (1.0-4.8); LYMPHOCYTES % (AUTO) 28.8 % (22.0-44.0); MEAN CORPUSCULAR VOLUME 85 fL (80-100); MONOCYTES # (AUTO) 0.5 K/uL (0.1-1.0); MONOCYTES % (AUTO) 8.7 % (2.0-9.0); NEUTROPHILS # (AUTO) 3.7 K/uL (1.8-7.7); NEUTROPHILS % (AUTO) 60.1 % (40.0-70.0); PLATELET COUNT (AUTO) 250 K/uL (150-450); RED BLOOD CELL COUNT(AUTO) 4.91 MIL/uL (4.00-5.20); RED CELL DISTRIBUTION WIDTH 15.6 % (11.5-14.5)
[2021-06-27 09:27] LABS: CALCIUM, TOTAL 8.3 mg/dL (8.8-10.5); CREATININE 1.08 mg/dL (0.60-1.30)
[2021-06-27] MEDS ORDERED: POTASSIUM CHL 10 MEQ/WATER 50 ML IV PRN (09:30)
[2021-06-27] MEDS ORDERED: POTASSIUM CHLORIDE 20 MEQ ER TABLET PO PRN (09:30)
[2021-06-27 09:33] LABS: LACTIC ACID 1.3 mmol/L (0.4-2.0)
[2021-06-27 09:40] LABS: ALBUMIN 3.2 g/dL (3.4-5.0); BILIRUBIN,TOTAL 0.4 mg/dL (0.1-1.0); TOTAL PROTEIN, SERUM 6.6 g/dL (6.4-8.2)
[2021-06-27 11:39] VITALS: BP 142/73
[2021-06-27 15:25] VITALS: BP 141/73
[2021-06-27] MEDS: ALPRAZolam 0.25 MG TABLET PO SCH ×2 (16:15→20:14)
[2021-06-27 20:24] VITALS: BP 137/75
[2021-06-27] MEDS ORDERED: MIRTAZAPINE 15 MG TABLET PO SCH (21:00)
[2021-06-27] MEDS ORDERED: PALIPERIDONE 3 MG ER TABLET PO SCH (21:00)
[2021-06-28 05:11] VITALS: BP 143/71
[2021-06-28 08:00] VITALS: BP 158/83
[2021-06-28] MEDS: OxyCODONE HCL/ACETAMINOPHEN 5-325 MG TABLET PO PRN (08:49)
[2021-06-28] MEDS: DOCUSATE SODIUM 100 MG CAPSULE PO SCH (09:04)
[2021-06-28] MEDS: ASPIRIN 81 MG CHEWABLE TABLET PO SCH (09:07)
[2021-06-28] MEDS: AmLODIPine BESYLATE 5 MG TABLET PO SCH (09:07)
[2021-06-28] MEDS: GABAPENTIN 100 MG CAPSULE PO SCH (09:07)
[2021-06-28] MEDS: ALPRAZolam 0.25 MG TABLET PO SCH ×2 (09:07→16:23)
[2021-06-28] MEDS: FAMOTIDINE 20 MG TABLET PO SCH (09:07)
[2021-06-28] MEDS: HEPARIN SODIUM,PORCINE 5,000 UNITS/ML VIAL SQ SCH ×2 (09:11→16:23)
[2021-06-28 16:38] VITALS: BP 150/75
== END 2021-06-28 18:15 | disposition home health service (06) | DRG 392 ==
LOC: EMS 11:11 → 6N 06-27 05:00
PROVIDERS: ADMIT Internal Medicine; ATTEND Internal Medicine
DX: R10.84 Generalized abdominal pain (principal); E44.0 Moderate protein-calorie malnutrition; I25.10 Atherosclerotic heart disease of native coronary artery without angina pectoris; M19.90 Unspecified osteoarthritis, unspecified site; G89.29 Other chronic pain; I11.9 Hypertensive heart disease without heart failure; E87.6 Hypokalemia; F25.1 Schizoaffective disorder, depressive type; F43.10 Post-traumatic stress disorder, unspecified; Z20.822 Contact with and (suspected) exposure to COVID-19; F41.0 Panic disorder [episodic paroxysmal anxiety]; Z90.11 Acquired absence of right breast and nipple; Z79.891 Long term (current) use of opiate analgesic; Z82.49 Family history of ischemic heart disease and other diseases of the circulatory system; Z83.3 Family history of diabetes mellitus; Z68.22 Body mass index [BMI] 22.0-22.9, adult
CPT/HCPCS: 51701; 71045; 74177; 80053; 81003; 83605; 83690; 83880; 84132; 84484; 85025; 85610; 85730; 87040; 93005; 97162; 99285; J0696; J1644; J2270; J2405; J7030; J7050; Q9967; 36415-L1; 36415-TC

== ENCOUNTER 2021-08-06 08:54 | Emergency (ER) | payer MEDICARE, OTHER ==
[~2021-08-06] VITALS: Ht 160 cm; Wt 68.2 kg
[2021-08-06 09:34] LABS: BASOPHILS % (AUTO) 0.4 % (0.0-2.0); EOSINOPHILS % (AUTO) 1.4 % (1.0-6.0); HEMOGLOBIN 13.8 g/dL (12.0-16.0); LYMPHOCYTES # (AUTO) 1.9 K/uL (1.0-4.8); LYMPHOCYTES % (AUTO) 27.8 % (22.0-44.0); MEAN CORPUSCULAR HEMOGLOBIN 28.1 pg (26.0-34.0); MEAN CORPUSCULAR HGB CONC 33.7 G/dL (31.0-37.0); MEAN CORPUSCULAR VOLUME 83 fL (80-100); MONOCYTES # (AUTO) 0.5 K/uL (0.1-1.0); MONOCYTES % (AUTO) 7.6 % (2.0-9.0); NEUTROPHILS # (AUTO) 4.2 K/uL (1.8-7.7); NEUTROPHILS % (AUTO) 62.8 % (40.0-70.0); PLATELET COUNT (AUTO) 282 K/uL (150-450); RED BLOOD CELL COUNT(AUTO) 4.91 MIL/uL (4.00-5.20); RED CELL DISTRIBUTION WIDTH 15.2 % (11.5-14.5)
[2021-08-06 09:53] LABS: ANION GAP 6 mmol/L (8-16); CALCIUM, TOTAL 8.4 mg/dL (8.8-10.5); CARBON DIOXIDE 30 mmol/L (22-29); CHLORIDE 107 mmol/L (98-107); CREATININE 0.82 mg/dL (0.60-1.30); GLUCOSE,RANDOM 106 mg/dL (70-110); POTASSIUM 3.1 mmol/L (3.5-5.1); SODIUM SERUM 143 mmol/L (136-145); UREA NITROGEN, BLOOD 10 mg/dL (7-18)
[2021-08-06 09:54] LABS: GLOMERULAR FILTR. RATE CALC > 60 mL/min (>60)
[2021-08-06 09:57] LABS: ALANINE AMINOTRANSFERASE 20 U/L (12-78); ALBUMIN 3.3 g/dL (3.4-5.0); ALKALINE PHOSPHATASE 96 U/L (46-116); ASPARTATE AMINOTRANSFERASE 14 U/L (15-37); BILIRUBIN,TOTAL 0.4 mg/dL (0.1-1.0); LIPASE 49 U/L (73-393); TOTAL PROTEIN, SERUM 6.7 g/dL (6.4-8.2)
[2021-08-06] MEDS ORDERED: MORPHINE SULFATE 2 MG/ML SYRINGE IVP ONE (10:30)
[2021-08-06] MEDS ORDERED: FAMOTIDINE 10 MG/ML 2 ML VIAL IVP ONE (10:30)
[2021-08-06] MEDS ORDERED: IOHEXOL 350 MG/ML 100 ML VIAL ONE (11:27)
[2021-08-06] MEDS ORDERED: SODIUM CHLORIDE 0.9% 100 ML ONE (11:27)
[2021-08-06 11:48] LABS: COVID AG,FIA SOURCE NASOPHARYNGEAL
[2021-08-06 15:22] VITALS: BP 129/72
== END 2021-08-06 15:23 | disposition home or self-care (01) ==
LOC: EMS 09:00
DX: R10.13 Epigastric pain (principal); R11.0 Nausea; I25.10 Atherosclerotic heart disease of native coronary artery without angina pectoris; I11.9 Hypertensive heart disease without heart failure; F20.9 Schizophrenia, unspecified; F41.9 Anxiety disorder, unspecified; F12.90 Cannabis use, unspecified, uncomplicated; Z20.822 Contact with and (suspected) exposure to COVID-19
CPT/HCPCS: 36415; 71045; 74177; 80053; 83690; 84484; 85025; 87426; 93005; 96374; 96375; 99285; J2270; J7050; Q9967

== ENCOUNTER 2021-10-04 12:01 | Emergency (ER) | payer MEDICARE, OTHER ==
[~2021-10-04] VITALS: Ht 160 cm; Wt 63.6 kg
[2021-10-04 13:21] LABS: BASOPHILS % (AUTO) 0.4 % (0.0-2.0); EOSINOPHILS % (AUTO) 0.6 % (1.0-6.0); HEMATOCRIT 45.4 % (36-46); HEMOGLOBIN 15.3 g/dL (12.0-16.0); LYMPHOCYTES # (AUTO) 1.2 K/uL (1.0-4.8); LYMPHOCYTES % (AUTO) 16.8 % (22.0-44.0); MEAN CORPUSCULAR HEMOGLOBIN 28.7 pg (26.0-34.0); MEAN CORPUSCULAR HGB CONC 33.7 G/dL (31.0-37.0); MEAN CORPUSCULAR VOLUME 85 fL (80-100); MONOCYTES # (AUTO) 0.3 K/uL (0.1-1.0); MONOCYTES % (AUTO) 3.7 % (2.0-9.0); NEUTROPHILS # (AUTO) 5.4 K/uL (1.8-7.7); NEUTROPHILS % (AUTO) 78.5 % (40.0-70.0); PLATELET COUNT (AUTO) 274 K/uL (150-450); RED BLOOD CELL COUNT(AUTO) 5.33 MIL/uL (4.00-5.20); RED CELL DISTRIBUTION WIDTH 15.3 % (11.5-14.5)
[2021-10-04] MEDS ORDERED: IOHEXOL 350 MG/ML 100 ML VIAL ONE (13:23)
[2021-10-04 13:26] LABS: ANION GAP 10 mmol/L (8-16); CALCIUM, TOTAL 9.1 mg/dL (8.8-10.5); CARBON DIOXIDE 27 mmol/L (22-29); CHLORIDE 103 mmol/L (98-107); GLUCOSE,RANDOM 112 mg/dL (70-110); POTASSIUM 3.4 mmol/L (3.5-5.1); SODIUM SERUM 140 mmol/L (136-145); UREA NITROGEN, BLOOD 8 mg/dL (7-18)
[2021-10-04 13:27] LABS: GLOMERULAR FILTR. RATE CALC > 60 mL/min (>60)
[2021-10-04 13:34] LABS: ALANINE AMINOTRANSFERASE 24 U/L (12-78); ALBUMIN 3.8 g/dL (3.4-5.0); ALKALINE PHOSPHATASE 119 U/L (46-116); ASPARTATE AMINOTRANSFERASE 19 U/L (15-37); BILIRUBIN,TOTAL 0.4 mg/dL (0.1-1.0); LIPASE 37 U/L (73-393)
[2021-10-04 14:00] LABS: PROTHROMBIN TIME 11.1 SEC (9.4-11.6)
[2021-10-04] MEDS ORDERED: MORPHINE SULFATE 4 MG/ML SYRINGE IVP ONE (14:15)
[2021-10-04 15:00] VITALS: BP 168/71
[2021-10-04 15:03] LABS: APPEARANCE,URINE CLEAR (CLEAR); BILIRUBIN,URINE NEGATIVE (NEGATIVE); GLUCOSE, URINE (UA) NEGATIVE (NEGATIVE); KETONES,URINE TRACE mg/dL (NEGATIVE); LEUKOCYTE ESTERASE ,URINE NEGATIVE (NEGATIVE); NITRATE,URINE NEGATIVE (NEGATIVE); OCCULT BLOOD,URINE NEGATIVE (NEGATIVE); PH,URINE 7.5 (5.0-8.0); PROTEIN,URINE NEGATIVE (NEGATIVE); UROBILINOGEN,URINE 0.2 mg/dL (<=1.0)
[2021-10-04 15:12] LABS: BACTERIA,URINE None Seen /HPF (None Seen); RBC,URINE None Seen /HPF (0-2); SQUAMOUS EPITHELIAL CELL,UR Few /LPF (None Seen); WBC,URINE None Seen /HPF (0-5)
== END 2021-10-04 16:07 | disposition home or self-care (01) ==
LOC: EMS 12:01
DX: K21.9 Gastro-esophageal reflux disease without esophagitis (principal); F41.9 Anxiety disorder, unspecified; I25.10 Atherosclerotic heart disease of native coronary artery without angina pectoris; I11.9 Hypertensive heart disease without heart failure; G89.29 Other chronic pain; F12.90 Cannabis use, unspecified, uncomplicated
CPT/HCPCS: 36415; 71045; 74177; 80053; 81001; 83690; 85025; 85610; 85730; 93005; 96374; 99285; J2270; Q9967

== ENCOUNTER 2021-10-08 07:42 | Emergency (ER) | payer MEDICARE, OTHER ==
[~2021-10-08] VITALS: Ht 154.9 cm; Wt 63.6 kg
[2021-10-08] MEDS ORDERED: PB/HYOSCY/ATR/SCOP/LIDO/MAALOX 55 ML BOTTLE PO ONE (08:00)
[2021-10-08] MEDS ORDERED: DiphenhydrAMINE HCL 50 MG/ML VIAL IVP ONE (08:00)
[2021-10-08 08:03] LABS: BASOPHILS % (AUTO) 0.5 % (0.0-2.0); HEMATOCRIT 43.4 % (36-46); HEMOGLOBIN 14.7 g/dL (12.0-16.0); LYMPHOCYTES # (AUTO) 1.8 K/uL (1.0-4.8); LYMPHOCYTES % (AUTO) 24.9 % (22.0-44.0); MEAN CORPUSCULAR HEMOGLOBIN 28.4 pg (26.0-34.0); MEAN CORPUSCULAR HGB CONC 33.7 G/dL (31.0-37.0); MEAN CORPUSCULAR VOLUME 84 fL (80-100); MONOCYTES # (AUTO) 0.5 K/uL (0.1-1.0); MONOCYTES % (AUTO) 6.7 % (2.0-9.0); NEUTROPHILS # (AUTO) 4.9 K/uL (1.8-7.7); NEUTROPHILS % (AUTO) 66.9 % (40.0-70.0); PLATELET COUNT (AUTO) 270 K/uL (150-450); RED BLOOD CELL COUNT(AUTO) 5.15 MIL/uL (4.00-5.20); RED CELL DISTRIBUTION WIDTH 15.2 % (11.5-14.5)
[2021-10-08 08:15] LABS: ANION GAP 14 mmol/L (8-16); CARBON DIOXIDE 24 mmol/L (22-29); CHLORIDE 105 mmol/L (98-107); CREATININE 0.84 mg/dL (0.60-1.30); GLUCOSE,RANDOM 112 mg/dL (70-110); POTASSIUM 3.2 mmol/L (3.5-5.1); SODIUM SERUM 143 mmol/L (136-145); UREA NITROGEN, BLOOD 9 mg/dL (7-18)
[2021-10-08 08:16] LABS: GLOMERULAR FILTR. RATE CALC > 60 mL/min (>60)
[2021-10-08 08:21] LABS: ALANINE AMINOTRANSFERASE 23 U/L (12-78); ALBUMIN 3.6 g/dL (3.4-5.0); ALKALINE PHOSPHATASE 108 U/L (46-116); ASPARTATE AMINOTRANSFERASE 20 U/L (15-37); BILIRUBIN,TOTAL 0.4 mg/dL (0.1-1.0); LIPASE 68 U/L (73-393)
[2021-10-08] MEDS ORDERED: POTASSIUM CHLORIDE 20 MEQ ER TABLET PO ONE (09:00)
[2021-10-08] MEDS ORDERED: ONDANSETRON HCL 4 MG/2 ML VIAL IVP ONE (12:45)
[2021-10-08] MEDS ORDERED: MORPHINE SULFATE 4 MG/ML SYRINGE IVP ONE (12:45)
[2021-10-08] MEDS ORDERED: MORPHINE SULFATE 2 MG/ML SYRINGE IVP ONE (13:15)
[2021-10-08 13:41] VITALS: BP 160/62
== END 2021-10-08 14:21 | disposition home or self-care (01) ==
LOC: EMS 07:44
DX: G89.29 Other chronic pain (principal); R10.13 Epigastric pain; F41.9 Anxiety disorder, unspecified; I10 Essential (primary) hypertension; F20.9 Schizophrenia, unspecified; Z79.899 Other long term (current) drug therapy; F12.90 Cannabis use, unspecified, uncomplicated
CPT/HCPCS: 36415; 80053; 83690; 84484; 85025; 93005; 96374; 96375; 99285; J1200; J2270; J2405

== ENCOUNTER 2021-10-14 10:53 | Emergency (ER) | payer MEDICARE, OTHER ==
[~2021-10-14] VITALS: Ht 160 cm; Wt 59.1 kg
[2021-10-14 12:46] LABS: BASOPHILS % (AUTO) 0.4 % (0.0-2.0); EOSINOPHILS % (AUTO) 0.9 % (1.0-6.0); HEMATOCRIT 41.5 % (36-46); HEMOGLOBIN 13.9 g/dL (12.0-16.0); LYMPHOCYTES # (AUTO) 1.9 K/uL (1.0-4.8); LYMPHOCYTES % (AUTO) 21.4 % (22.0-44.0); MEAN CORPUSCULAR HEMOGLOBIN 28.4 pg (26.0-34.0); MEAN CORPUSCULAR HGB CONC 33.5 G/dL (31.0-37.0); MEAN CORPUSCULAR VOLUME 85 fL (80-100); MONOCYTES # (AUTO) 0.6 K/uL (0.1-1.0); MONOCYTES % (AUTO) 6.5 % (2.0-9.0); NEUTROPHILS # (AUTO) 6.1 K/uL (1.8-7.7); NEUTROPHILS % (AUTO) 70.8 % (40.0-70.0); PLATELET COUNT (AUTO) 275 K/uL (150-450); RED BLOOD CELL COUNT(AUTO) 4.91 MIL/uL (4.00-5.20)
[2021-10-14 12:58] LABS: ANION GAP 12 mmol/L (8-16); CALCIUM, TOTAL 8.8 mg/dL (8.8-10.5); CARBON DIOXIDE 22 mmol/L (22-29); CHLORIDE 105 mmol/L (98-107); CREATININE 0.87 mg/dL (0.60-1.30); GLUCOSE,RANDOM 94 mg/dL (70-110); POTASSIUM 3.2 mmol/L (3.5-5.1); SODIUM SERUM 139 mmol/L (136-145); UREA NITROGEN, BLOOD 15 mg/dL (7-18)
[2021-10-14 13:03] LABS: GLOMERULAR FILTR. RATE CALC > 60 mL/min (>60)
[2021-10-14 13:04] LABS: ALANINE AMINOTRANSFERASE 35 U/L (12-78); ALBUMIN 3.4 g/dL (3.4-5.0); ALKALINE PHOSPHATASE 110 U/L (46-116); ASPARTATE AMINOTRANSFERASE 23 U/L (15-37); BILIRUBIN,TOTAL 0.4 mg/dL (0.1-1.0); LIPASE 94 U/L (73-393); TOTAL PROTEIN, SERUM 6.8 g/dL (6.4-8.2)
[2021-10-14 13:30] LABS: APPEARANCE,URINE CLEAR (CLEAR); BILIRUBIN,URINE NEGATIVE (NEGATIVE); GLUCOSE, URINE (UA) NEGATIVE (NEGATIVE); KETONES,URINE NEGATIVE (NEGATIVE); LEUKOCYTE ESTERASE ,URINE NEGATIVE (NEGATIVE); NITRATE,URINE NEGATIVE (NEGATIVE); OCCULT BLOOD,URINE NEGATIVE (NEGATIVE); PH,URINE 6.5 (5.0-8.0); PROTEIN,URINE NEGATIVE (NEGATIVE); SPECIFIC GRAVITIY, URINE 1.009 (1.003-1.030); UROBILINOGEN,URINE <=1.0 mg/dL (<=1.0)
[2021-10-14] MEDS ORDERED: SODIUM CHLORIDE 0.9% 1,000 ML IV ONE (14:30)
[2021-10-14] MEDS ORDERED: LORazepam 2 MG/ML VIAL IVP ONE (14:30)
[2021-10-14] MEDS ORDERED: ONDANSETRON HCL 4 MG/2 ML VIAL IVP ONE (14:30)
[2021-10-14] MEDS ORDERED: MORPHINE SULFATE 2 MG/ML SYRINGE IVP ONE (14:30)
[2021-10-14 17:30] VITALS: BP 140/84
== END 2021-10-14 19:50 | disposition home or self-care (01) ==
LOC: EMS 10:53
DX: R10.84 Generalized abdominal pain (principal); F41.9 Anxiety disorder, unspecified; I10 Essential (primary) hypertension; I25.10 Atherosclerotic heart disease of native coronary artery without angina pectoris; F12.90 Cannabis use, unspecified, uncomplicated; Z79.899 Other long term (current) drug therapy
CPT/HCPCS: 36415; 71045; 74176; 80053; 81003; 83605; 83690; 84484; 85025; 86850; 86900; 86901; 93005; 96361; 96374; 96375; 99285; J2060; J2270; J2405; J7030

== ENCOUNTER 2022-02-27 08:35 | Emergency (ER) | payer MEDICARE, OTHER ==
[~2022-02-27] VITALS: Ht 162.6 cm; Wt 58.6 kg
[2022-02-27 10:28] VITALS: BP 155/83
[2022-02-27] MEDS ORDERED: KETOROLAC TROMETHAMINE 30 MG/ML VIAL IVP ONE (11:30)
[2022-02-27] MEDS ORDERED: LORazepam 2 MG TABLET PO ONE (11:30)
[2022-02-27] MEDS ORDERED: ONDANSETRON HCL 4 MG/2 ML VIAL IVP ONE (11:30)
[2022-02-27] MEDS ORDERED: MORPHINE SULFATE 4 MG/ML SYRINGE IVP ONE (11:30)
[2022-02-27] MEDS ORDERED: BACL10TA PO (12:38)
[2022-02-27] MEDS ORDERED: ALPR-705 PO (12:38)
== END 2022-02-27 15:08 | disposition home or self-care (01) ==
LOC: EMS 08:40
DX: S39.012A Strain of muscle, fascia and tendon of lower back, initial encounter (principal); F20.9 Schizophrenia, unspecified; F41.9 Anxiety disorder, unspecified; I25.10 Atherosclerotic heart disease of native coronary artery without angina pectoris; I10 Essential (primary) hypertension; G47.419 Narcolepsy without cataplexy; F12.90 Cannabis use, unspecified, uncomplicated; G89.29 Other chronic pain; Z87.19 Personal history of other diseases of the digestive system; Z87.39 Personal history of other diseases of the musculoskeletal system and connective tissue; Z85.9 Personal history of malignant neoplasm, unspecified; Z90.11 Acquired absence of right breast and nipple; Z90.49 Acquired absence of other specified parts of digestive tract; X58.XXXA Exposure to other specified factors, initial encounter; Y93.89 Activity, other specified; Y92.89 Other specified places as the place of occurrence of the external cause; Y99.8 Other external cause status
CPT/HCPCS: 99284; 96374; 96375; J1885; J2270; J2405

== ENCOUNTER 2022-04-08 10:32 | Inpatient (IN) | payer MEDICARE, OTHER ==
[~2022-04-08] VITALS: Ht 160 cm; Wt 61.4 kg
[~2022-04-08 10:32] MED LIST changes: +ALPR-705 PO; +BACL10TA PO
[2022-04-08] MEDS ORDERED: DiphenhydrAMINE HCL 50 MG/ML VIAL IVP ONE (12:30)
[2022-04-08] MEDS ORDERED: LORazepam 2 MG/ML VIAL IVP ONE (12:30)
[2022-04-08] MEDS ORDERED: SODIUM CHLORIDE 0.9% 1,000 ML IV ONE ×2 (12:30→13:30)
[2022-04-08] MEDS ORDERED: HALOPERIDOL LACTATE 5 MG/ML VIAL IVP ONE (12:30)
[2022-04-08 13:00] LABS: BASOPHILS % (AUTO) 0.3 % (0.0-2.0); EOSINOPHILS % (AUTO) 0.7 % (1.0-6.0); HEMATOCRIT 40.7 % (36-46); HEMOGLOBIN 13.6 g/dL (12.0-16.0); LYMPHOCYTES # (AUTO) 0.6 K/uL (1.0-4.8); LYMPHOCYTES % (AUTO) 7.9 % (22.0-44.0); MEAN CORPUSCULAR HEMOGLOBIN 28.5 pg (26.0-34.0); MEAN CORPUSCULAR HGB CONC 33.4 G/dL (31.0-37.0); MEAN CORPUSCULAR VOLUME 85 fL (80-100); MONOCYTES # (AUTO) 0.8 K/uL (0.1-1.0); NEUTROPHILS # (AUTO) 6.1 K/uL (1.8-7.7); NEUTROPHILS % (AUTO) 81.1 % (40.0-70.0); PLATELET COUNT (AUTO) 230 K/uL (150-450); RED BLOOD CELL COUNT(AUTO) 4.76 MIL/uL (4.00-5.20); RED CELL DISTRIBUTION WIDTH 14.6 % (11.5-14.5)
[2022-04-08 13:17] LABS: ANION GAP 11 mmol/L (8-16); CALCIUM, TOTAL 8.8 mg/dL (8.8-10.5); CARBON DIOXIDE 25 mmol/L (22-29); CHLORIDE 102 mmol/L (98-107); CREATININE 0.81 mg/dL (0.60-1.30); GLUCOSE,RANDOM 101 mg/dL (70-110); POTASSIUM 3.1 mmol/L (3.5-5.1); SODIUM SERUM 138 mmol/L (136-145); UREA NITROGEN, BLOOD 15 mg/dL (7-18)
[2022-04-08 13:18] LABS: GLOMERULAR FILTR. RATE CALC > 60 mL/min (>60)
[2022-04-08 13:21] LABS: ALANINE AMINOTRANSFERASE 19 U/L (12-78); ALBUMIN 3.5 g/dL (3.4-5.0); ALKALINE PHOSPHATASE 99 U/L (46-116); ASPARTATE AMINOTRANSFERASE 16 U/L (15-37); BILIRUBIN,TOTAL 0.3 mg/dL (0.1-1.0); LIPASE 50 U/L (73-393); TOTAL PROTEIN, SERUM 6.8 g/dL (6.4-8.2)
[2022-04-08 13:25] LABS: LACTIC ACID 0.8 mmol/L (0.4-2.0)
[2022-04-08 13:30] LABS: B-TYPE NATRIURETIC PEPTIDE 130 pg/mL (0-100)
[2022-04-08] MEDS ORDERED: LORazepam 2 MG/ML VIAL IVP PRN (13:30)
[2022-04-08 13:32] LABS: COVID AG,FIA SOURCE NASOPHARYNGEAL
[2022-04-08] MEDS: AmLODIPine BESYLATE 10 MG TABLET PO SCH (14:04)
[2022-04-08 14:18] LABS: APPEARANCE,URINE CLEAR (CLEAR); BILIRUBIN,URINE NEGATIVE (NEGATIVE); GLUCOSE, URINE (UA) NEGATIVE (NEGATIVE); KETONES,URINE TRACE mg/dL (NEGATIVE); LEUKOCYTE ESTERASE ,URINE NEGATIVE (NEGATIVE); NITRATE,URINE NEGATIVE (NEGATIVE); OCCULT BLOOD,URINE NEGATIVE (NEGATIVE); PH,URINE 7.5 (5.0-8.0); PROTEIN,URINE NEGATIVE (NEGATIVE); SPECIFIC GRAVITIY, URINE 1.009 (1.003-1.030); UROBILINOGEN,URINE <=1.0 mg/dL (<=1.0)
[2022-04-08 14:25] LABS: BACTERIA,URINE None Seen /HPF (None Seen); RBC,URINE None Seen /HPF (0-2); WBC,URINE None Seen /HPF (0-5)
[2022-04-08] MEDS: HEPARIN SODIUM,PORCINE 5,000 UNITS/ML VIAL SQ SCH ×2 (15:31→23:20)
[2022-04-08] MEDS: OxyCODONE HCL/ACETAMINOPHEN 5-325 MG TABLET PO PRN ×2 (16:48→23:20)
[2022-04-08] MEDS: ACETAMINOPHEN 325 MG TABLET PO PRN (17:02)
[2022-04-08] MEDS ORDERED: REMDESIVIR 200 MG in SODIUM CHLORIDE 0.9% 250 ML IV ONE (18:00)
[2022-04-08] MEDS: DEXAMETHASONE SOD PHOS 4 MG/ML VIAL IVP SCH (18:12)
[2022-04-08] MEDS: POTASSIUM CHLORIDE 20 MEQ ER TABLET PO PRN (18:49)
[2022-04-08] MEDS: FAMOTIDINE 20 MG TABLET PO SCH (21:08)
[2022-04-08] MEDS: DOCUSATE SODIUM 100 MG CAPSULE PO SCH (21:08)
[2022-04-08 21:21] VITALS: BP 126/76
[2022-04-09] MEDS ORDERED: SODIUM CHLORIDE 0.9% 500 ML IV ONE ×2 (00:10→07:39)
[2022-04-09] MEDS: POTASSIUM CHL 10 MEQ/WATER 50 ML IV PRN ×4 (00:24→05:25)
[2022-04-09 04:49] VITALS: BP 130/60
[2022-04-09] MEDS: OxyCODONE HCL/ACETAMINOPHEN 5-325 MG TABLET PO PRN ×5 (05:18→21:45)
[2022-04-09 07:58] VITALS: BP 144/66
[2022-04-09] MEDS: FAMOTIDINE 20 MG TABLET PO SCH ×2 (09:11→19:40)
[2022-04-09] MEDS: HEPARIN SODIUM,PORCINE 5,000 UNITS/ML VIAL SQ SCH ×3 (09:11→23:52)
[2022-04-09] MEDS: ASPIRIN 81 MG CHEWABLE TABLET PO SCH (09:11)
[2022-04-09] MEDS: AmLODIPine BESYLATE 10 MG TABLET PO SCH (09:11)
[2022-04-09] MEDS: DOCUSATE SODIUM 100 MG CAPSULE PO SCH ×2 (09:11→19:40)
[2022-04-09] MEDS: MULTIVITAMINS WITH MINERALS, THERAPEUTIC TABLET PO SCH (09:11)
[2022-04-09] MEDS: DEXAMETHASONE SOD PHOS 4 MG/ML VIAL IVP SCH (09:14)
[2022-04-09 16:00] VITALS: BP 129/50
[2022-04-09 20:13] VITALS: BP 150/70
[2022-04-09] MEDS: REMDESIVIR 100 MG in SODIUM CHLORIDE 0.9% 250 ML IV SCH (20:19)
[2022-04-09] MEDS: ZOLPIDEM TARTRATE 5 MG TABLET PO PRN (23:52)
[2022-04-09] MEDS: HYDROCODONE/ACETAMINOPHEN 10-325 MG TABLET PO PRN (23:52)
[2022-04-10 04:37] VITALS: BP 131/63
[2022-04-10] MEDS: HYDROCODONE/ACETAMINOPHEN 10-325 MG TABLET PO PRN ×4 (06:28→20:08)
[2022-04-10 08:00] VITALS: BP 151/65
[2022-04-10] MEDS: AmLODIPine BESYLATE 10 MG TABLET PO SCH (09:14)
[2022-04-10] MEDS: MULTIVITAMINS WITH MINERALS, THERAPEUTIC TABLET PO SCH (09:14)
[2022-04-10] MEDS: HEPARIN SODIUM,PORCINE 5,000 UNITS/ML VIAL SQ SCH ×2 (09:14→15:30)
[2022-04-10] MEDS: ASPIRIN 81 MG CHEWABLE TABLET PO SCH (09:14)
[2022-04-10] MEDS: FAMOTIDINE 20 MG TABLET PO SCH ×2 (09:14→20:08)
[2022-04-10] MEDS: DOCUSATE SODIUM 100 MG CAPSULE PO SCH ×2 (09:14→20:07)
[2022-04-10] MEDS: DEXAMETHASONE SOD PHOS 4 MG/ML VIAL IVP SCH (09:15)
[2022-04-10] MEDS: MAGNESIUM HYDROXIDE SUSPENSION 30 ML UDCUP PO PRN (10:38)
[2022-04-10] MEDS: ALPRAZolam 0.25 MG TABLET PO PRN ×2 (10:38→16:58)
[2022-04-10] MEDS: BENZONATATE 100 MG CAPSULE PO PRN (10:38)
[2022-04-10 15:33] VITALS: BP 123/68
[2022-04-10] MEDS: REMDESIVIR 100 MG in SODIUM CHLORIDE 0.9% 250 ML IV SCH (20:07)
[2022-04-10] MEDS: ZOLPIDEM TARTRATE 5 MG TABLET PO PRN (20:08)
[2022-04-10 20:43] VITALS: BP 136/65
[2022-04-11] MEDS: HEPARIN SODIUM,PORCINE 5,000 UNITS/ML VIAL SQ SCH ×4 (00:01→23:57)
[2022-04-11] MEDS: ALPRAZolam 0.25 MG TABLET PO PRN ×3 (00:01→16:22)
[2022-04-11] MEDS: HYDROCODONE/ACETAMINOPHEN 10-325 MG TABLET PO PRN ×4 (01:27→18:24)
[2022-04-11] MEDS: BENZONATATE 100 MG CAPSULE PO PRN (03:00)
[2022-04-11] MEDS: ACETAMINOPHEN 325 MG TABLET PO PRN ×2 (03:00→19:55)
[2022-04-11 04:18] VITALS: BP 144/73
[2022-04-11 06:11] LABS: ALANINE AMINOTRANSFERASE 51 U/L (12-78); ALBUMIN 3.1 g/dL (3.4-5.0); ALKALINE PHOSPHATASE 82 U/L (46-116); ANION GAP 5 mmol/L (8-16); ASPARTATE AMINOTRANSFERASE 58 U/L (15-37); BILIRUBIN,TOTAL 0.2 mg/dL (0.1-1.0); CARBON DIOXIDE 31 mmol/L (22-29); CHLORIDE 101 mmol/L (98-107); CREATININE 0.66 mg/dL (0.60-1.30); GLOMERULAR FILTR. RATE CALC > 60 mL/min (>60); GLUCOSE,RANDOM 99 mg/dL (70-110); SODIUM SERUM 137 mmol/L (136-145); TOTAL PROTEIN, SERUM 6.3 g/dL (6.4-8.2); UREA NITROGEN, BLOOD 15 mg/dL (7-18)
[2022-04-11] MEDS: POTASSIUM CHLORIDE 20 MEQ ER TABLET PO PRN (07:17)
[2022-04-11 07:30] VITALS: BP 119/55
[2022-04-11] MEDS: FAMOTIDINE 20 MG TABLET PO SCH ×2 (08:07→19:55)
[2022-04-11] MEDS: MULTIVITAMINS WITH MINERALS, THERAPEUTIC TABLET PO SCH (08:07)
[2022-04-11] MEDS: AmLODIPine BESYLATE 10 MG TABLET PO SCH (08:07)
[2022-04-11] MEDS: DOCUSATE SODIUM 100 MG CAPSULE PO SCH ×2 (08:07→19:55)
[2022-04-11] MEDS: ASPIRIN 81 MG CHEWABLE TABLET PO SCH (08:08)
[2022-04-11] MEDS: DEXAMETHASONE SOD PHOS 4 MG/ML VIAL IVP SCH (08:09)
[2022-04-11 16:14] VITALS: BP 118/76
[2022-04-11 19:45] VITALS: BP 131/69
[2022-04-11] MEDS: REMDESIVIR 100 MG in SODIUM CHLORIDE 0.9% 250 ML IV SCH (19:51)
[2022-04-11] MEDS: ZOLPIDEM TARTRATE 5 MG TABLET PO PRN (20:09)
[2022-04-12] MEDS: MAGNESIUM HYDROXIDE SUSPENSION 30 ML UDCUP PO PRN (01:59)
[2022-04-12] MEDS: HYDROCODONE/ACETAMINOPHEN 10-325 MG TABLET PO PRN ×4 (01:59→17:39)
[2022-04-12] MEDS: ALPRAZolam 0.25 MG TABLET PO PRN ×4 (02:04→20:51)
[2022-04-12 04:45] VITALS: BP 137/75
[2022-04-12] MEDS: FAMOTIDINE 20 MG TABLET PO SCH ×2 (06:35→20:51)
[2022-04-12 06:45] LABS: ALANINE AMINOTRANSFERASE 74 U/L (12-78); ALKALINE PHOSPHATASE 88 U/L (46-116); ANION GAP 9 mmol/L (8-16); ASPARTATE AMINOTRANSFERASE 46 U/L (15-37); BILIRUBIN,TOTAL 0.2 mg/dL (0.1-1.0); CALCIUM, TOTAL 8.4 mg/dL (8.8-10.5); CARBON DIOXIDE 27 mmol/L (22-29); CHLORIDE 104 mmol/L (98-107); CREATININE 0.76 mg/dL (0.60-1.30); GLUCOSE,RANDOM 100 mg/dL (70-110); POTASSIUM 3.3 mmol/L (3.5-5.1); SODIUM SERUM 140 mmol/L (136-145); TOTAL PROTEIN, SERUM 6.2 g/dL (6.4-8.2); UREA NITROGEN, BLOOD 14 mg/dL (7-18)
[2022-04-12 06:47] LABS: GLOMERULAR FILTR. RATE CALC > 60 mL/min (>60)
[2022-04-12 08:07] VITALS: BP 130/65
[2022-04-12] MEDS: MULTIVITAMINS WITH MINERALS, THERAPEUTIC TABLET PO SCH (08:16)
[2022-04-12] MEDS: AmLODIPine BESYLATE 10 MG TABLET PO SCH (08:16)
[2022-04-12] MEDS: HEPARIN SODIUM,PORCINE 5,000 UNITS/ML VIAL SQ SCH ×3 (08:17→23:41)
[2022-04-12] MEDS: ASPIRIN 81 MG CHEWABLE TABLET PO SCH (08:17)
[2022-04-12] MEDS: DOCUSATE SODIUM 100 MG CAPSULE PO SCH ×2 (08:17→20:51)
[2022-04-12] MEDS: DEXAMETHASONE SOD PHOS 4 MG/ML VIAL IVP SCH (08:17)
[2022-04-12] MEDS: POTASSIUM CHLORIDE 20 MEQ ER TABLET PO PRN (08:18)
[2022-04-12 16:13] VITALS: BP 135/63
[2022-04-12 20:15] VITALS: BP 126/64
[2022-04-12] MEDS: ZOLPIDEM TARTRATE 5 MG TABLET PO PRN (20:51)
[2022-04-12] MEDS: REMDESIVIR 100 MG in SODIUM CHLORIDE 0.9% 250 ML IV SCH (20:52)
[2022-04-13] MEDS: HYDROCODONE/ACETAMINOPHEN 10-325 MG TABLET PO PRN ×5 (00:14→21:24)
[2022-04-13] MEDS: ACETAMINOPHEN 325 MG TABLET PO PRN ×2 (03:55→22:39)
[2022-04-13] MEDS: ALPRAZolam 0.25 MG TABLET PO PRN ×3 (04:11→20:01)
[2022-04-13 04:15] VITALS: BP 137/77
[2022-04-13] MEDS: MAGNESIUM HYDROXIDE SUSPENSION 30 ML UDCUP PO PRN (05:46)
[2022-04-13] MEDS: SUCRALFATE 1 GM/10 ML SUSPENSION UDCUP PO SCH ×3 (07:58→17:23)
[2022-04-13 08:00] VITALS: BP 139/83
[2022-04-13] MEDS: DOCUSATE SODIUM 100 MG CAPSULE PO SCH ×2 (08:58→20:02)
[2022-04-13] MEDS: ASPIRIN 81 MG CHEWABLE TABLET PO SCH (08:58)
[2022-04-13] MEDS: FAMOTIDINE 20 MG TABLET PO SCH ×2 (08:59→20:02)
[2022-04-13] MEDS: AmLODIPine BESYLATE 10 MG TABLET PO SCH (08:59)
[2022-04-13] MEDS: DEXAMETHASONE SOD PHOS 4 MG/ML VIAL IVP SCH (08:59)
[2022-04-13] MEDS: HEPARIN SODIUM,PORCINE 5,000 UNITS/ML VIAL SQ SCH ×3 (08:59→23:33)
[2022-04-13] MEDS: MULTIVITAMINS WITH MINERALS, THERAPEUTIC TABLET PO SCH (08:59)
[2022-04-13 15:51] VITALS: BP 143/65
[2022-04-13 19:30] VITALS: BP 134/68
[2022-04-13] MEDS: ZOLPIDEM TARTRATE 5 MG TABLET PO PRN (22:39)
[2022-04-14] MEDS: HYDROCODONE/ACETAMINOPHEN 10-325 MG TABLET PO PRN ×5 (01:45→21:13)
[2022-04-14] MEDS: ALPRAZolam 0.25 MG TABLET PO PRN ×2 (04:56→17:12)
[2022-04-14] MEDS: ONDANSETRON HCL 4 MG/2 ML VIAL IVP PRN ×2 (04:57→12:26)
[2022-04-14 05:00] VITALS: BP 135/72
[2022-04-14] MEDS: SUCRALFATE 1 GM/10 ML SUSPENSION UDCUP PO SCH ×3 (07:38→17:12)
[2022-04-14] MEDS: HEPARIN SODIUM,PORCINE 5,000 UNITS/ML VIAL SQ SCH ×3 (07:41→23:37)
[2022-04-14 08:06] VITALS: BP 136/69
[2022-04-14] MEDS: ASPIRIN 81 MG CHEWABLE TABLET PO SCH (08:33)
[2022-04-14] MEDS: MULTIVITAMINS WITH MINERALS, THERAPEUTIC TABLET PO SCH (08:33)
[2022-04-14] MEDS: AmLODIPine BESYLATE 10 MG TABLET PO SCH (08:33)
[2022-04-14] MEDS: DOCUSATE SODIUM 100 MG CAPSULE PO SCH ×2 (08:34→20:11)
[2022-04-14] MEDS: FAMOTIDINE 20 MG TABLET PO SCH ×2 (08:34→20:11)
[2022-04-14 11:21] LABS: COVID AG,FIA SOURCE NASAL SWAB
[2022-04-14 16:32] VITALS: BP 131/68
[2022-04-14 20:00] VITALS: BP 128/59
[2022-04-14] MEDS: ZOLPIDEM TARTRATE 5 MG TABLET PO PRN (21:13)
[2022-04-15] MEDS: ALPRAZolam 0.25 MG TABLET PO PRN ×4 (01:37→21:16)
[2022-04-15] MEDS: ONDANSETRON HCL 4 MG/2 ML VIAL IVP PRN (02:43)
[2022-04-15 03:30] VITALS: BP 102/61
[2022-04-15] MEDS: SUCRALFATE 1 GM/10 ML SUSPENSION UDCUP PO SCH ×3 (06:44→17:25)
[2022-04-15 07:41] VITALS: BP 118/64
[2022-04-15] MEDS: HEPARIN SODIUM,PORCINE 5,000 UNITS/ML VIAL SQ SCH ×3 (07:43→23:26)
[2022-04-15] MEDS: HYDROCODONE/ACETAMINOPHEN 10-325 MG TABLET PO PRN ×2 (07:44→18:48)
[2022-04-15] MEDS: MULTIVITAMINS WITH MINERALS, THERAPEUTIC TABLET PO SCH (08:01)
[2022-04-15] MEDS: AmLODIPine BESYLATE 10 MG TABLET PO SCH (08:02)
[2022-04-15] MEDS: DOCUSATE SODIUM 100 MG CAPSULE PO SCH ×2 (08:02→21:00)
[2022-04-15] MEDS: ASPIRIN 81 MG CHEWABLE TABLET PO SCH (08:02)
[2022-04-15] MEDS: FAMOTIDINE 20 MG TABLET PO SCH ×2 (08:02→21:16)
[2022-04-15 15:07] VITALS: BP 110/68
[2022-04-15 19:41] VITALS: BP 123/70
[2022-04-15] MEDS: ZOLPIDEM TARTRATE 5 MG TABLET PO PRN (23:27)
[2022-04-16] MEDS: HYDROCODONE/ACETAMINOPHEN 10-325 MG TABLET PO PRN ×3 (01:42→16:15)
[2022-04-16 04:27] VITALS: BP 109/61
[2022-04-16] MEDS: ALPRAZolam 0.25 MG TABLET PO PRN ×3 (06:17→21:46)
[2022-04-16] MEDS: SUCRALFATE 1 GM/10 ML SUSPENSION UDCUP PO SCH ×3 (06:33→16:18)
[2022-04-16 08:05] VITALS: BP 125/75
[2022-04-16] MEDS: ONDANSETRON HCL 4 MG/2 ML VIAL IVP PRN (09:44)
[2022-04-16] MEDS: ASPIRIN 81 MG CHEWABLE TABLET PO SCH (09:44)
[2022-04-16] MEDS: HEPARIN SODIUM,PORCINE 5,000 UNITS/ML VIAL SQ SCH ×3 (09:44→23:35)
[2022-04-16] MEDS: DOCUSATE SODIUM 100 MG CAPSULE PO SCH ×2 (09:44→21:39)
[2022-04-16] MEDS: AmLODIPine BESYLATE 10 MG TABLET PO SCH (09:44)
[2022-04-16] MEDS: FAMOTIDINE 20 MG TABLET PO SCH ×2 (09:44→21:39)
[2022-04-16] MEDS: MULTIVITAMINS WITH MINERALS, THERAPEUTIC TABLET PO SCH (09:45)
[2022-04-16 11:33] LABS: BASOPHILS % (AUTO) 0.2 % (0.0-2.0); EOSINOPHILS % (AUTO) 0.9 % (1.0-6.0); HEMATOCRIT 42.2 % (36-46); HEMOGLOBIN 14.2 g/dL (12.0-16.0); LYMPHOCYTES # (AUTO) 1.9 K/uL (1.0-4.8); LYMPHOCYTES % (AUTO) 18.8 % (22.0-44.0); MEAN CORPUSCULAR HEMOGLOBIN 28.6 pg (26.0-34.0); MEAN CORPUSCULAR HGB CONC 33.5 G/dL (31.0-37.0); MEAN CORPUSCULAR VOLUME 86 fL (80-100); MONOCYTES # (AUTO) 0.8 K/uL (0.1-1.0); MONOCYTES % (AUTO) 8.1 % (2.0-9.0); NEUTROPHILS # (AUTO) 7.2 K/uL (1.8-7.7); PLATELET COUNT (AUTO) 290 K/uL (150-450); RED BLOOD CELL COUNT(AUTO) 4.94 MIL/uL (4.00-5.20); RED CELL DISTRIBUTION WIDTH 15.7 % (11.5-14.5)
[2022-04-16 11:49] LABS: ANION GAP 9 mmol/L (8-16); CALCIUM, TOTAL 8.7 mg/dL (8.8-10.5); CARBON DIOXIDE 28 mmol/L (22-29); CHLORIDE 102 mmol/L (98-107); CREATININE 0.85 mg/dL (0.60-1.30); GLUCOSE,RANDOM 112 mg/dL (70-110); POTASSIUM 3.4 mmol/L (3.5-5.1); SODIUM SERUM 139 mmol/L (136-145); UREA NITROGEN, BLOOD 17 mg/dL (7-18)
[2022-04-16 11:53] LABS: GLOMERULAR FILTR. RATE CALC > 60 mL/min (>60)
[2022-04-16 15:50] VITALS: BP 106/53
[2022-04-16 20:08] VITALS: BP 110/67
[2022-04-16] MEDS: POTASSIUM CHLORIDE 20 MEQ ER TABLET PO PRN (21:40)
[2022-04-16] MEDS: ZOLPIDEM TARTRATE 5 MG TABLET PO PRN (23:36)
[2022-04-17] MEDS: HYDROCODONE/ACETAMINOPHEN 10-325 MG TABLET PO PRN ×3 (01:13→16:08)
[2022-04-17 05:38] VITALS: BP 136/75
[2022-04-17] MEDS: SUCRALFATE 1 GM/10 ML SUSPENSION UDCUP PO SCH ×3 (06:54→18:25)
[2022-04-17 07:17] VITALS: BP 125/70
[2022-04-17] MEDS: DOCUSATE SODIUM 100 MG CAPSULE PO SCH ×2 (09:13→20:06)
[2022-04-17] MEDS: HEPARIN SODIUM,PORCINE 5,000 UNITS/ML VIAL SQ SCH ×3 (09:13→23:23)
[2022-04-17] MEDS: ASPIRIN 81 MG CHEWABLE TABLET PO SCH (09:13)
[2022-04-17] MEDS: FAMOTIDINE 20 MG TABLET PO SCH ×2 (09:14→20:08)
[2022-04-17] MEDS: MULTIVITAMINS WITH MINERALS, THERAPEUTIC TABLET PO SCH (09:14)
[2022-04-17] MEDS: AmLODIPine BESYLATE 10 MG TABLET PO SCH (09:14)
[2022-04-17] MEDS: ONDANSETRON HCL 4 MG/2 ML VIAL IVP PRN ×3 (09:27→23:25)
[2022-04-17] MEDS: ALPRAZolam 0.25 MG TABLET PO PRN ×2 (14:03→20:08)
[2022-04-17 16:00] VITALS: BP 134/69
[2022-04-17 20:10] VITALS: BP 123/76
[2022-04-17] MEDS: ZOLPIDEM TARTRATE 5 MG TABLET PO PRN (23:26)
[2022-04-18 00:47] VITALS: BP 113/72
[2022-04-18] MEDS: HYDROCODONE/ACETAMINOPHEN 10-325 MG TABLET PO PRN ×4 (00:47→22:57)
[2022-04-18] MEDS: MAGNESIUM HYDROXIDE SUSPENSION 30 ML UDCUP PO PRN ×2 (00:59→21:30)
[2022-04-18] MEDS: SUCRALFATE 1 GM/10 ML SUSPENSION UDCUP PO SCH ×3 (06:14→17:13)
[2022-04-18] MEDS: ALPRAZolam 0.25 MG TABLET PO PRN ×3 (06:19→22:57)
[2022-04-18] MEDS: HEPARIN SODIUM,PORCINE 5,000 UNITS/ML VIAL SQ SCH ×4 (08:00→23:16)
[2022-04-18 08:59] VITALS: BP 112/69
[2022-04-18] MEDS: DOCUSATE SODIUM 100 MG CAPSULE PO SCH ×2 (09:24→21:28)
[2022-04-18] MEDS: MULTIVITAMINS WITH MINERALS, THERAPEUTIC TABLET PO SCH (09:24)
[2022-04-18] MEDS: FAMOTIDINE 20 MG TABLET PO SCH ×2 (09:24→21:28)
[2022-04-18] MEDS: AmLODIPine BESYLATE 10 MG TABLET PO SCH (09:24)
[2022-04-18] MEDS: ASPIRIN 81 MG CHEWABLE TABLET PO SCH (09:24)
[2022-04-18] MEDS: ONDANSETRON HCL 4 MG/2 ML VIAL IVP PRN ×2 (09:25→21:28)
[2022-04-18 17:02] VITALS: BP 131/78
[2022-04-18 19:40] VITALS: BP 116/57
[2022-04-19 05:25] VITALS: BP 114/73
[2022-04-19] MEDS: HYDROCODONE/ACETAMINOPHEN 10-325 MG TABLET PO PRN ×3 (05:44→22:46)
[2022-04-19 07:52] LABS: BASOPHILS % (AUTO) 0.3 % (0.0-2.0); EOSINOPHILS % (AUTO) 2.7 % (1.0-6.0); HEMATOCRIT 42.6 % (36-46); LYMPHOCYTES # (AUTO) 1.9 K/uL (1.0-4.8); LYMPHOCYTES % (AUTO) 26.2 % (22.0-44.0); MEAN CORPUSCULAR HEMOGLOBIN 28.3 pg (26.0-34.0); MEAN CORPUSCULAR HGB CONC 32.7 G/dL (31.0-37.0); MEAN CORPUSCULAR VOLUME 87 fL (80-100); MONOCYTES # (AUTO) 0.7 K/uL (0.1-1.0); MONOCYTES % (AUTO) 9.3 % (2.0-9.0); NEUTROPHILS # (AUTO) 4.5 K/uL (1.8-7.7); NEUTROPHILS % (AUTO) 61.5 % (40.0-70.0); PLATELET COUNT (AUTO) 243 K/uL (150-450); RED BLOOD CELL COUNT(AUTO) 4.93 MIL/uL (4.00-5.20); RED CELL DISTRIBUTION WIDTH 15.3 % (11.5-14.5)
[2022-04-19] MEDS: HEPARIN SODIUM,PORCINE 5,000 UNITS/ML VIAL SQ SCH ×4 (08:00→23:40)
[2022-04-19 08:04] LABS: ALBUMIN 2.6 g/dL (3.4-5.0); BILIRUBIN,TOTAL 0.3 mg/dL (0.1-1.0); CALCIUM, TOTAL 8.7 mg/dL (8.8-10.5); CREATININE 1.06 mg/dL (0.60-1.30); POTASSIUM 4.3 mmol/L (3.5-5.1); TOTAL PROTEIN, SERUM 5.9 g/dL (6.4-8.2)
[2022-04-19 08:19] VITALS: BP 117/71
[2022-04-19] MEDS: FAMOTIDINE 20 MG TABLET PO SCH ×2 (10:10→20:12)
[2022-04-19] MEDS: ASPIRIN 81 MG CHEWABLE TABLET PO SCH (10:11)
[2022-04-19] MEDS: AmLODIPine BESYLATE 10 MG TABLET PO SCH (10:12)
[2022-04-19] MEDS: SUCRALFATE 1 GM/10 ML SUSPENSION UDCUP PO SCH ×3 (10:12→16:50)
[2022-04-19] MEDS: DOCUSATE SODIUM 100 MG CAPSULE PO SCH ×2 (10:12→20:12)
[2022-04-19] MEDS: MULTIVITAMINS WITH MINERALS, THERAPEUTIC TABLET PO SCH (10:12)
[2022-04-19] MEDS: ALPRAZolam 0.25 MG TABLET PO PRN ×2 (10:16→20:11)
[2022-04-19 11:49] LABS: COVID AG,FIA SOURCE NASOPHARYNGEAL
[2022-04-19 16:19] VITALS: BP 123/69
[2022-04-19] MEDS: ONDANSETRON HCL 4 MG/2 ML VIAL IVP PRN (16:51)
[2022-04-19 19:31] VITALS: BP 127/67
[2022-04-19] MEDS: ZOLPIDEM TARTRATE 5 MG TABLET PO PRN (20:12)
[2022-04-19] MEDS: MAGNESIUM HYDROXIDE SUSPENSION 30 ML UDCUP PO PRN (22:46)
[2022-04-20 03:52] VITALS: BP 121/65
[2022-04-20 08:15] VITALS: BP 108/84
[2022-04-20] MEDS: HEPARIN SODIUM,PORCINE 5,000 UNITS/ML VIAL SQ SCH ×2 (08:32→15:08)
[2022-04-20] MEDS: MULTIVITAMINS WITH MINERALS, THERAPEUTIC TABLET PO SCH (08:32)
[2022-04-20] MEDS: DOCUSATE SODIUM 100 MG CAPSULE PO SCH ×2 (08:32→20:13)
[2022-04-20] MEDS: ASPIRIN 81 MG CHEWABLE TABLET PO SCH (08:32)
[2022-04-20] MEDS: AmLODIPine BESYLATE 10 MG TABLET PO SCH (08:32)
[2022-04-20] MEDS: FAMOTIDINE 20 MG TABLET PO SCH ×2 (08:32→20:13)
[2022-04-20] MEDS: HYDROCODONE/ACETAMINOPHEN 10-325 MG TABLET PO PRN ×2 (08:33→15:08)
[2022-04-20] MEDS: SUCRALFATE 1 GM/10 ML SUSPENSION UDCUP PO SCH ×3 (08:35→17:39)
[2022-04-20] MEDS: ALPRAZolam 0.25 MG TABLET PO PRN ×3 (08:48→21:16)
[2022-04-20] MEDS: ONDANSETRON HCL 4 MG/2 ML VIAL IVP PRN (15:08)
[2022-04-20 15:43] VITALS: BP 133/75
[2022-04-20 20:15] VITALS: BP 114/56
[2022-04-21] MEDS: HEPARIN SODIUM,PORCINE 5,000 UNITS/ML VIAL SQ SCH ×5 (01:36→15:50)
[2022-04-21] MEDS: HYDROCODONE/ACETAMINOPHEN 10-325 MG TABLET PO PRN ×3 (01:43→15:50)
[2022-04-21] MEDS: SUCRALFATE 1 GM/10 ML SUSPENSION UDCUP PO SCH ×3 (06:48→17:52)
[2022-04-21 08:00] VITALS: BP 126/70
[2022-04-21] MEDS: MULTIVITAMINS WITH MINERALS, THERAPEUTIC TABLET PO SCH (08:17)
[2022-04-21] MEDS: DOCUSATE SODIUM 100 MG CAPSULE PO SCH ×2 (08:17→20:55)
[2022-04-21] MEDS: FAMOTIDINE 20 MG TABLET PO SCH ×2 (08:17→20:55)
[2022-04-21] MEDS: ASPIRIN 81 MG CHEWABLE TABLET PO SCH (08:17)
[2022-04-21] MEDS: AmLODIPine BESYLATE 10 MG TABLET PO SCH (08:18)
[2022-04-21] MEDS: ALPRAZolam 0.25 MG TABLET PO PRN ×2 (08:18→15:50)
[2022-04-21 15:27] VITALS: BP 142/78
[2022-04-21] MEDS: ONDANSETRON HCL 4 MG/2 ML VIAL IVP PRN (15:50)
[2022-04-21 21:00] VITALS: BP 132/78
[2022-04-22] MEDS: HEPARIN SODIUM,PORCINE 5,000 UNITS/ML VIAL SQ SCH ×3 (00:18→16:45)
[2022-04-22] MEDS: ZOLPIDEM TARTRATE 5 MG TABLET PO PRN (00:37)
[2022-04-22 04:30] VITALS: BP 119/74
[2022-04-22] MEDS: HYDROCODONE/ACETAMINOPHEN 10-325 MG TABLET PO PRN ×3 (05:03→17:33)
[2022-04-22] MEDS: SUCRALFATE 1 GM/10 ML SUSPENSION UDCUP PO SCH ×3 (06:50→16:46)
[2022-04-22] MEDS: DOCUSATE SODIUM 100 MG CAPSULE PO SCH ×2 (08:37→19:44)
[2022-04-22] MEDS: ASPIRIN 81 MG CHEWABLE TABLET PO SCH (08:37)
[2022-04-22] MEDS: MULTIVITAMINS WITH MINERALS, THERAPEUTIC TABLET PO SCH (08:39)
[2022-04-22] MEDS: AmLODIPine BESYLATE 10 MG TABLET PO SCH (08:39)
[2022-04-22] MEDS: FAMOTIDINE 20 MG TABLET PO SCH ×2 (08:39→19:44)
[2022-04-22 08:52] VITALS: BP 114/55
[2022-04-22] MEDS: ALPRAZolam 0.25 MG TABLET PO PRN ×2 (13:00→19:43)
[2022-04-22] MEDS: ONDANSETRON HCL 4 MG/2 ML VIAL IVP PRN (13:00)
[2022-04-22 16:00] VITALS: BP 121/70
[2022-04-22 19:16] VITALS: BP 114/66
[2022-04-23] MEDS: HEPARIN SODIUM,PORCINE 5,000 UNITS/ML VIAL SQ SCH ×3 (00:06→15:23)
[2022-04-23] MEDS: HYDROCODONE/ACETAMINOPHEN 10-325 MG TABLET PO PRN ×4 (01:48→17:59)
[2022-04-23 05:36] VITALS: BP 114/53
[2022-04-23] MEDS: SUCRALFATE 1 GM/10 ML SUSPENSION UDCUP PO SCH ×3 (06:34→17:59)
[2022-04-23] MEDS: ASPIRIN 81 MG CHEWABLE TABLET PO SCH (08:11)
[2022-04-23] MEDS: FAMOTIDINE 20 MG TABLET PO SCH ×2 (08:11→20:57)
[2022-04-23] MEDS: AmLODIPine BESYLATE 10 MG TABLET PO SCH (08:11)
[2022-04-23] MEDS: MULTIVITAMINS WITH MINERALS, THERAPEUTIC TABLET PO SCH (08:12)
[2022-04-23] MEDS: ALPRAZolam 0.25 MG TABLET PO PRN ×2 (08:12→20:57)
[2022-04-23] MEDS: DOCUSATE SODIUM 100 MG CAPSULE PO SCH ×2 (08:12→20:57)
[2022-04-23 15:03] VITALS: BP 125/63
[2022-04-23] MEDS: ONDANSETRON HCL 4 MG/2 ML VIAL IVP PRN (15:23)
[2022-04-23 20:53] VITALS: BP 123/69
[2022-04-24] MEDS: ALPRAZolam 0.25 MG TABLET PO PRN ×2 (02:28→18:09)
[2022-04-24] MEDS: HYDROCODONE/ACETAMINOPHEN 10-325 MG TABLET PO PRN ×4 (02:28→23:44)
[2022-04-24 04:00] VITALS: BP 116/51
[2022-04-24] MEDS: SUCRALFATE 1 GM/10 ML SUSPENSION UDCUP PO SCH ×3 (08:07→18:05)
[2022-04-24] MEDS: HEPARIN SODIUM,PORCINE 5,000 UNITS/ML VIAL SQ SCH ×4 (08:07→23:44)
[2022-04-24] MEDS: ASPIRIN 81 MG CHEWABLE TABLET PO SCH (08:08)
[2022-04-24] MEDS: DOCUSATE SODIUM 100 MG CAPSULE PO SCH ×2 (08:08→21:14)
[2022-04-24] MEDS: AmLODIPine BESYLATE 10 MG TABLET PO SCH (08:08)
[2022-04-24] MEDS: FAMOTIDINE 20 MG TABLET PO SCH ×2 (08:08→21:14)
[2022-04-24] MEDS: MULTIVITAMINS WITH MINERALS, THERAPEUTIC TABLET PO SCH (08:09)
[2022-04-24 08:27] VITALS: BP 108/63
[2022-04-24 21:00] VITALS: BP 121/76
[2022-04-24] MEDS: ACETAMINOPHEN 325 MG TABLET PO PRN (21:20)
[2022-04-25] MEDS: ALPRAZolam 0.25 MG TABLET PO PRN ×4 (01:49→23:38)
[2022-04-25 04:04] VITALS: BP 129/66
[2022-04-25] MEDS: HYDROCODONE/ACETAMINOPHEN 10-325 MG TABLET PO PRN ×3 (04:08→21:44)
[2022-04-25] MEDS: HEPARIN SODIUM,PORCINE 5,000 UNITS/ML VIAL SQ SCH ×3 (08:36→23:35)
[2022-04-25] MEDS: FAMOTIDINE 20 MG TABLET PO SCH ×2 (08:36→21:44)
[2022-04-25] MEDS: DOCUSATE SODIUM 100 MG CAPSULE PO SCH ×2 (08:36→21:44)
[2022-04-25] MEDS: MULTIVITAMINS WITH MINERALS, THERAPEUTIC TABLET PO SCH (08:36)
[2022-04-25] MEDS: ASPIRIN 81 MG CHEWABLE TABLET PO SCH (08:36)
[2022-04-25] MEDS: AmLODIPine BESYLATE 10 MG TABLET PO SCH (08:36)
[2022-04-25 08:37] VITALS: BP 115/62
[2022-04-25] MEDS: SUCRALFATE 1 GM/10 ML SUSPENSION UDCUP PO SCH ×3 (08:38→17:32)
[2022-04-25 09:20] LABS: COVID AG,FIA SOURCE NASOPHARYNGEAL
[2022-04-25 17:05] VITALS: BP 137/78
[2022-04-25 20:21] VITALS: BP 134/68
[2022-04-26] MEDS: HYDROCODONE/ACETAMINOPHEN 10-325 MG TABLET PO PRN ×3 (04:02→22:02)
[2022-04-26] MEDS: MAGNESIUM HYDROXIDE SUSPENSION 30 ML UDCUP PO PRN (05:21)
[2022-04-26 05:22] VITALS: BP 125/73
[2022-04-26 08:30] VITALS: BP 119/59
[2022-04-26] MEDS: SUCRALFATE 1 GM/10 ML SUSPENSION UDCUP PO SCH ×3 (08:43→17:34)
[2022-04-26] MEDS: HEPARIN SODIUM,PORCINE 5,000 UNITS/ML VIAL SQ SCH ×3 (08:44→23:53)
[2022-04-26] MEDS: ASPIRIN 81 MG CHEWABLE TABLET PO SCH (08:45)
[2022-04-26] MEDS: FAMOTIDINE 20 MG TABLET PO SCH ×2 (08:48→20:43)
[2022-04-26] MEDS: AmLODIPine BESYLATE 10 MG TABLET PO SCH (08:48)
[2022-04-26] MEDS: MULTIVITAMINS WITH MINERALS, THERAPEUTIC TABLET PO SCH (08:49)
[2022-04-26] MEDS: DOCUSATE SODIUM 100 MG CAPSULE PO SCH ×2 (08:52→20:43)
[2022-04-26] MEDS: ALPRAZolam 0.25 MG TABLET PO PRN ×2 (08:53→20:43)
[2022-04-26 16:12] VITALS: BP 124/62
[2022-04-26 19:40] VITALS: BP 115/60
[2022-04-27] MEDS: HYDROCODONE/ACETAMINOPHEN 10-325 MG TABLET PO PRN (02:28)
[2022-04-27 05:36] VITALS: BP 136/75
[2022-04-27 07:19] VITALS: BP 129/64
[2022-04-27] MEDS: ASPIRIN 81 MG CHEWABLE TABLET PO SCH (08:30)
[2022-04-27] MEDS: MULTIVITAMINS WITH MINERALS, THERAPEUTIC TABLET PO SCH (08:30)
[2022-04-27] MEDS: DOCUSATE SODIUM 100 MG CAPSULE PO SCH ×2 (08:30→19:47)
[2022-04-27] MEDS: FAMOTIDINE 20 MG TABLET PO SCH ×2 (08:30→19:47)
[2022-04-27] MEDS: BENZONATATE 100 MG CAPSULE PO PRN (08:30)
[2022-04-27] MEDS: SUCRALFATE 1 GM/10 ML SUSPENSION UDCUP PO SCH ×3 (08:31→17:44)
[2022-04-27] MEDS: AmLODIPine BESYLATE 10 MG TABLET PO SCH (08:31)
[2022-04-27] MEDS: HEPARIN SODIUM,PORCINE 5,000 UNITS/ML VIAL SQ SCH ×3 (08:31→23:32)
[2022-04-27] MEDS: ALPRAZolam 0.25 MG TABLET PO PRN ×2 (10:03→17:44)
[2022-04-27] MEDS: ACETAMINOPHEN 325 MG TABLET PO PRN ×4 (10:03→23:33)
[2022-04-27 15:11] VITALS: BP 124/61
[2022-04-27 19:30] VITALS: BP 118/75
[2022-04-28] MEDS: ALPRAZolam 0.25 MG TABLET PO PRN ×3 (01:32→19:58)
[2022-04-28 04:00] VITALS: BP 153/78
[2022-04-28] MEDS: ACETAMINOPHEN 325 MG TABLET PO PRN ×2 (04:21→10:56)
[2022-04-28] MEDS: DOCUSATE SODIUM 100 MG CAPSULE PO SCH ×2 (07:52→19:58)
[2022-04-28] MEDS: SUCRALFATE 1 GM/10 ML SUSPENSION UDCUP PO SCH ×3 (07:52→17:02)
[2022-04-28] MEDS: AmLODIPine BESYLATE 10 MG TABLET PO SCH (07:52)
[2022-04-28] MEDS: FAMOTIDINE 20 MG TABLET PO SCH ×2 (07:52→19:58)
[2022-04-28] MEDS: MULTIVITAMINS WITH MINERALS, THERAPEUTIC TABLET PO SCH (07:52)
[2022-04-28] MEDS: ASPIRIN 81 MG CHEWABLE TABLET PO SCH (07:52)
[2022-04-28] MEDS: HEPARIN SODIUM,PORCINE 5,000 UNITS/ML VIAL SQ SCH ×2 (07:53→15:51)
[2022-04-28 08:03] VITALS: BP 139/90
[2022-04-28] MEDS: OxyCODONE HCL/ACETAMINOPHEN 5-325 MG TABLET PO PRN ×2 (13:58→22:10)
[2022-04-28] MEDS ORDERED: PROP10TA72 PO (14:01)
[2022-04-28] MEDS ORDERED: SERT-440 PO (14:01)
[2022-04-28] MEDS ORDERED: LISI10TA24 PO (14:01)
[2022-04-28] MEDS ORDERED: ONDA4TAB10 PO (14:01)
[2022-04-28] MEDS ORDERED: AMLO10TA55 PO (14:01)
[2022-04-28] MEDS ORDERED: FAMO20 PO (14:01)
[2022-04-28 18:20] VITALS: BP 143/80
[2022-04-28 20:00] VITALS: BP 129/83
[2022-04-29] MEDS: HEPARIN SODIUM,PORCINE 5,000 UNITS/ML VIAL SQ SCH ×4 (00:16→22:21)
[2022-04-29] MEDS: ALPRAZolam 0.25 MG TABLET PO PRN ×3 (02:15→19:29)
[2022-04-29 03:00] VITALS: BP 138/76
[2022-04-29] MEDS: OxyCODONE HCL/ACETAMINOPHEN 5-325 MG TABLET PO PRN ×2 (06:10→15:10)
[2022-04-29] MEDS: SUCRALFATE 1 GM/10 ML SUSPENSION UDCUP PO SCH ×3 (06:45→18:22)
[2022-04-29 07:58] VITALS: BP 161/90
[2022-04-29] MEDS: AmLODIPine BESYLATE 10 MG TABLET PO SCH (09:13)
[2022-04-29] MEDS: MULTIVITAMINS WITH MINERALS, THERAPEUTIC TABLET PO SCH (09:13)
[2022-04-29] MEDS: FAMOTIDINE 20 MG TABLET PO SCH ×2 (09:13→19:29)
[2022-04-29] MEDS: ASPIRIN 81 MG CHEWABLE TABLET PO SCH (09:13)
[2022-04-29] MEDS: DOCUSATE SODIUM 100 MG CAPSULE PO SCH ×2 (09:13→19:29)
[2022-04-29] MEDS: ACETAMINOPHEN 325 MG TABLET PO PRN ×2 (10:56→19:35)
[2022-04-29 15:25] VITALS: BP 138/72
[2022-04-29 16:45] LABS: COVID AG,FIA SOURCE NASOPHARYNGEAL
[2022-04-29 19:43] VITALS: BP 136/74
[2022-04-29] MEDS ORDERED: OxyCODONE HCL/ACETAMINOPHEN 10-325 MG TABLET PO ONE (22:15)
[2022-04-30] MEDS: ALPRAZolam 0.25 MG TABLET PO PRN ×3 (03:18→17:44)
[2022-04-30 03:43] VITALS: BP 128/72
[2022-04-30] MEDS: OxyCODONE HCL/ACETAMINOPHEN 5-325 MG TABLET PO PRN ×3 (04:50→20:39)
[2022-04-30 07:59] VITALS: BP 132/75
[2022-04-30] MEDS: DOCUSATE SODIUM 100 MG CAPSULE PO SCH ×2 (08:59→20:39)
[2022-04-30] MEDS: SUCRALFATE 1 GM/10 ML SUSPENSION UDCUP PO SCH ×3 (08:59→17:44)
[2022-04-30] MEDS: FAMOTIDINE 20 MG TABLET PO SCH ×2 (08:59→20:39)
[2022-04-30] MEDS: ASPIRIN 81 MG CHEWABLE TABLET PO SCH (09:00)
[2022-04-30] MEDS: MULTIVITAMINS WITH MINERALS, THERAPEUTIC TABLET PO SCH (09:00)
[2022-04-30] MEDS: ACETAMINOPHEN 325 MG TABLET PO PRN ×3 (09:00→22:31)
[2022-04-30] MEDS: AmLODIPine BESYLATE 10 MG TABLET PO SCH (09:00)
[2022-04-30] MEDS: HEPARIN SODIUM,PORCINE 5,000 UNITS/ML VIAL SQ SCH ×2 (09:03→16:00)
[2022-04-30 17:00] VITALS: BP 129/82
[2022-04-30 19:45] VITALS: BP 131/45
[2022-05-01] MEDS: ALPRAZolam 0.25 MG TABLET PO PRN ×4 (00:13→23:38)
[2022-05-01] MEDS: HEPARIN SODIUM,PORCINE 5,000 UNITS/ML VIAL SQ SCH ×4 (00:14→23:38)
[2022-05-01 03:35] VITALS: BP 145/86
[2022-05-01] MEDS: OxyCODONE HCL/ACETAMINOPHEN 5-325 MG TABLET PO PRN ×3 (04:18→20:28)
[2022-05-01 07:32] VITALS: BP 138/81
[2022-05-01] MEDS: DOCUSATE SODIUM 100 MG CAPSULE PO SCH ×2 (08:23→20:27)
[2022-05-01] MEDS: FAMOTIDINE 20 MG TABLET PO SCH ×2 (08:23→20:27)
[2022-05-01] MEDS: MULTIVITAMINS WITH MINERALS, THERAPEUTIC TABLET PO SCH (08:23)
[2022-05-01] MEDS: ASPIRIN 81 MG CHEWABLE TABLET PO SCH (08:23)
[2022-05-01] MEDS: AmLODIPine BESYLATE 10 MG TABLET PO SCH (08:24)
[2022-05-01] MEDS: SUCRALFATE 1 GM/10 ML SUSPENSION UDCUP PO SCH ×3 (08:25→17:11)
[2022-05-01 15:36] VITALS: BP 128/69
[2022-05-01] MEDS: ONDANSETRON HCL 4 MG/2 ML VIAL IVP PRN (17:11)
[2022-05-01 20:39] VITALS: BP 115/72
[2022-05-01] MEDS: MAGNESIUM HYDROXIDE SUSPENSION 30 ML UDCUP PO PRN (23:38)
[2022-05-02] MEDS: OxyCODONE HCL/ACETAMINOPHEN 5-325 MG TABLET PO PRN ×2 (04:26→12:17)
[2022-05-02 04:30] VITALS: BP 147/86
[2022-05-02] MEDS: SUCRALFATE 1 GM/10 ML SUSPENSION UDCUP PO SCH ×3 (08:41→17:23)
[2022-05-02] MEDS: HEPARIN SODIUM,PORCINE 5,000 UNITS/ML VIAL SQ SCH ×3 (08:41→23:58)
[2022-05-02] MEDS: FAMOTIDINE 20 MG TABLET PO SCH ×2 (08:42→20:35)
[2022-05-02] MEDS: DOCUSATE SODIUM 100 MG CAPSULE PO SCH ×2 (08:42→20:35)
[2022-05-02] MEDS: MULTIVITAMINS WITH MINERALS, THERAPEUTIC TABLET PO SCH (08:42)
[2022-05-02] MEDS: ALPRAZolam 0.25 MG TABLET PO PRN ×2 (08:42→17:22)
[2022-05-02] MEDS: AmLODIPine BESYLATE 10 MG TABLET PO SCH (08:42)
[2022-05-02] MEDS: ASPIRIN 81 MG CHEWABLE TABLET PO SCH (08:42)
[2022-05-02 08:50] VITALS: BP 112/76
[2022-05-02] MEDS: ACETAMINOPHEN 325 MG TABLET PO PRN ×2 (09:19→17:23)
[2022-05-02 15:14] VITALS: BP 129/66
[2022-05-02] MEDS: TraMADol HCL 50 MG TABLET PO PRN (15:51)
[2022-05-02 19:50] VITALS: BP 127/67
[2022-05-03] MEDS: TraMADol HCL 50 MG TABLET PO PRN ×3 (00:02→16:33)
[2022-05-03] MEDS: ALPRAZolam 0.25 MG TABLET PO PRN ×3 (02:34→21:24)
[2022-05-03] MEDS: SUCRALFATE 1 GM/10 ML SUSPENSION UDCUP PO SCH ×3 (06:20→16:33)
[2022-05-03 06:30] VITALS: BP 140/88
[2022-05-03] MEDS: ASPIRIN 81 MG CHEWABLE TABLET PO SCH (08:20)
[2022-05-03] MEDS: AmLODIPine BESYLATE 10 MG TABLET PO SCH (08:20)
[2022-05-03] MEDS: DOCUSATE SODIUM 100 MG CAPSULE PO SCH ×2 (08:20→21:24)
[2022-05-03] MEDS: MULTIVITAMINS WITH MINERALS, THERAPEUTIC TABLET PO SCH (08:20)
[2022-05-03] MEDS: HEPARIN SODIUM,PORCINE 5,000 UNITS/ML VIAL SQ SCH ×2 (08:20→15:40)
[2022-05-03] MEDS: FAMOTIDINE 20 MG TABLET PO SCH ×2 (08:20→21:24)
[2022-05-03 16:00] VITALS: BP 145/78
[2022-05-03 20:00] VITALS: BP 109/68
[2022-05-03] MEDS: ACETAMINOPHEN 325 MG TABLET PO PRN (21:24)
[2022-05-04] MEDS: HEPARIN SODIUM,PORCINE 5,000 UNITS/ML VIAL SQ SCH ×3 (00:02→16:00)
[2022-05-04] MEDS: TraMADol HCL 50 MG TABLET PO PRN ×2 (00:05→17:34)
[2022-05-04] MEDS: ALPRAZolam 0.25 MG TABLET PO PRN ×2 (04:34→17:34)
[2022-05-04] MEDS: ACETAMINOPHEN 325 MG TABLET PO PRN ×2 (04:34→10:42)
[2022-05-04 04:35] VITALS: BP 127/73
[2022-05-04 09:00] VITALS: BP 151/83
[2022-05-04] MEDS: ASPIRIN 81 MG CHEWABLE TABLET PO SCH (09:19)
[2022-05-04] MEDS: DOCUSATE SODIUM 100 MG CAPSULE PO SCH ×2 (09:19→20:47)
[2022-05-04] MEDS: AmLODIPine BESYLATE 10 MG TABLET PO SCH (09:19)
[2022-05-04] MEDS: SUCRALFATE 1 GM/10 ML SUSPENSION UDCUP PO SCH ×3 (09:19→17:34)
[2022-05-04] MEDS: MULTIVITAMINS WITH MINERALS, THERAPEUTIC TABLET PO SCH (09:19)
[2022-05-04] MEDS: FAMOTIDINE 20 MG TABLET PO SCH ×2 (09:20→20:47)
[2022-05-04 14:00] VITALS: BP_SYST 118; BP_SYST 127; BP_DIAS 73
[2022-05-04 17:27] LABS: GLUCOMETER DEV NAME(LOC) 6N.2B; GLUCOSE,POINT OF CARE 145 MG/DL (70-110)
[2022-05-04 20:47] VITALS: BP 116/75
[2022-05-05] MEDS: ALPRAZolam 0.25 MG TABLET PO PRN ×3 (00:08→21:15)
[2022-05-05] MEDS: HEPARIN SODIUM,PORCINE 5,000 UNITS/ML VIAL SQ SCH ×3 (00:08→16:21)
[2022-05-05] MEDS: TraMADol HCL 50 MG TABLET PO PRN ×3 (02:18→20:37)
[2022-05-05] MEDS: FAMOTIDINE 20 MG TABLET PO SCH ×2 (08:42→20:37)
[2022-05-05] MEDS: DOCUSATE SODIUM 100 MG CAPSULE PO SCH ×2 (08:42→20:37)
[2022-05-05] MEDS: MULTIVITAMINS WITH MINERALS, THERAPEUTIC TABLET PO SCH (08:42)
[2022-05-05] MEDS: SUCRALFATE 1 GM/10 ML SUSPENSION UDCUP PO SCH ×3 (08:42→17:36)
[2022-05-05] MEDS: ASPIRIN 81 MG CHEWABLE TABLET PO SCH (08:43)
[2022-05-05] MEDS: AmLODIPine BESYLATE 10 MG TABLET PO SCH (08:47)
[2022-05-05 08:57] VITALS: BP 146/65
[2022-05-05 16:13] VITALS: BP 129/63
[2022-05-05 20:00] VITALS: BP 134/75
[2022-05-06] MEDS: HEPARIN SODIUM,PORCINE 5,000 UNITS/ML VIAL SQ SCH ×3 (01:40→17:53)
[2022-05-06] MEDS: ACETAMINOPHEN 325 MG TABLET PO PRN ×2 (01:40→11:05)
[2022-05-06 04:00] VITALS: BP 132/69
[2022-05-06] MEDS: ALPRAZolam 0.25 MG TABLET PO PRN ×3 (05:10→17:52)
[2022-05-06] MEDS: TraMADol HCL 50 MG TABLET PO PRN ×3 (05:10→21:08)
[2022-05-06 07:50] VITALS: BP 133/72
[2022-05-06] MEDS: MULTIVITAMINS WITH MINERALS, THERAPEUTIC TABLET PO SCH (08:03)
[2022-05-06] MEDS: SUCRALFATE 1 GM/10 ML SUSPENSION UDCUP PO SCH ×3 (08:03→17:52)
[2022-05-06] MEDS: DOCUSATE SODIUM 100 MG CAPSULE PO SCH ×2 (08:03→21:07)
[2022-05-06] MEDS: AmLODIPine BESYLATE 10 MG TABLET PO SCH (08:04)
[2022-05-06] MEDS: ASPIRIN 81 MG CHEWABLE TABLET PO SCH (08:04)
[2022-05-06] MEDS: FAMOTIDINE 20 MG TABLET PO SCH ×2 (08:04→21:07)
[2022-05-06 15:57] VITALS: BP 148/64
[2022-05-06 19:55] VITALS: BP 131/72
[2022-05-07] MEDS: ALPRAZolam 0.25 MG TABLET PO PRN ×2 (02:07→08:27)
[2022-05-07] MEDS: HEPARIN SODIUM,PORCINE 5,000 UNITS/ML VIAL SQ SCH ×3 (02:07→17:00)
[2022-05-07 04:01] VITALS: BP 114/63
[2022-05-07] MEDS: TraMADol HCL 50 MG TABLET PO PRN ×2 (04:38→12:43)
[2022-05-07] MEDS: ACETAMINOPHEN 325 MG TABLET PO PRN ×2 (06:46→17:13)
[2022-05-07 07:35] VITALS: BP 128/70
[2022-05-07] MEDS: FAMOTIDINE 20 MG TABLET PO SCH ×2 (08:22→20:28)
[2022-05-07] MEDS: AmLODIPine BESYLATE 10 MG TABLET PO SCH (08:22)
[2022-05-07] MEDS: DOCUSATE SODIUM 100 MG CAPSULE PO SCH ×2 (08:22→20:28)
[2022-05-07] MEDS: ASPIRIN 81 MG CHEWABLE TABLET PO SCH (08:22)
[2022-05-07] MEDS: SUCRALFATE 1 GM/10 ML SUSPENSION UDCUP PO SCH ×3 (08:22→17:01)
[2022-05-07] MEDS: MULTIVITAMINS WITH MINERALS, THERAPEUTIC TABLET PO SCH (08:22)
[2022-05-07 15:18] VITALS: BP 134/62
[2022-05-07 19:53] VITALS: BP 132/80
[2022-05-07] MEDS: MAGNESIUM HYDROXIDE SUSPENSION 30 ML UDCUP PO PRN (21:46)
[2022-05-08] MEDS: HEPARIN SODIUM,PORCINE 5,000 UNITS/ML VIAL SQ SCH ×4 (00:10→23:23)
[2022-05-08] MEDS: ALPRAZolam 0.25 MG TABLET PO PRN ×4 (03:05→23:24)
[2022-05-08] MEDS: ACETAMINOPHEN 325 MG TABLET PO PRN ×2 (03:05→09:16)
[2022-05-08] MEDS: TraMADol HCL 50 MG TABLET PO PRN ×3 (04:57→20:52)
[2022-05-08 05:00] VITALS: BP 114/74
[2022-05-08] MEDS: SUCRALFATE 1 GM/10 ML SUSPENSION UDCUP PO SCH ×3 (07:07→17:04)
[2022-05-08 07:43] VITALS: BP 126/76
[2022-05-08] MEDS: MULTIVITAMINS WITH MINERALS, THERAPEUTIC TABLET PO SCH (08:58)
[2022-05-08] MEDS: FAMOTIDINE 20 MG TABLET PO SCH ×2 (08:58→20:51)
[2022-05-08] MEDS: DOCUSATE SODIUM 100 MG CAPSULE PO SCH ×2 (08:58→20:51)
[2022-05-08] MEDS: ASPIRIN 81 MG CHEWABLE TABLET PO SCH (08:58)
[2022-05-08] MEDS: AmLODIPine BESYLATE 10 MG TABLET PO SCH (08:58)
[2022-05-08] MEDS ORDERED: METOCLOPRAMIDE HCL 5 MG TABLET PO PRN (11:15)
[2022-05-08 15:04] VITALS: BP 124/80
[2022-05-08] MEDS ORDERED: ASPI-1450 PO (16:21)
[2022-05-08] MEDS ORDERED: SUCR1ORA15 PO (16:24)
[2022-05-08] MEDS ORDERED: TRAM50TA4 PO (16:28)
[2022-05-08 21:12] VITALS: BP 123/77
[2022-05-09] MEDS: ACETAMINOPHEN 325 MG TABLET PO PRN ×2 (03:06→09:36)
[2022-05-09 04:15] VITALS: BP 141/71
[2022-05-09] MEDS: TraMADol HCL 50 MG TABLET PO PRN (06:25)
[2022-05-09 07:56] VITALS: BP 134/63
[2022-05-09] MEDS: FAMOTIDINE 20 MG TABLET PO SCH (09:27)
[2022-05-09] MEDS: HEPARIN SODIUM,PORCINE 5,000 UNITS/ML VIAL SQ SCH (09:27)
[2022-05-09] MEDS: SUCRALFATE 1 GM/10 ML SUSPENSION UDCUP PO SCH (09:27)
[2022-05-09] MEDS: MULTIVITAMINS WITH MINERALS, THERAPEUTIC TABLET PO SCH (09:27)
[2022-05-09] MEDS: ASPIRIN 81 MG CHEWABLE TABLET PO SCH (09:27)
[2022-05-09] MEDS: DOCUSATE SODIUM 100 MG CAPSULE PO SCH (09:27)
[2022-05-09] MEDS: AmLODIPine BESYLATE 10 MG TABLET PO SCH (09:28)
== END 2022-05-09 12:30 | disposition home health service (06) | DRG 177 ==
LOC: EMS 10:32 → 6N 18:37
PROVIDERS: ADMIT Internal Medicine; ATTEND Internal Medicine
PROC: XW033E5 Introduction of Remdesivir Anti-infective into Peripheral Vein, Percutaneous Approach, New Technology Group 5 (ICD-10-PCS; principal; 2022-04-08)
DX: U07.1 COVID-19 (principal); J12.82 Pneumonia due to coronavirus disease 2019; J96.91 Respiratory failure, unspecified with hypoxia; J44.0 Chronic obstructive pulmonary disease with (acute) lower respiratory infection; E87.6 Hypokalemia; F20.9 Schizophrenia, unspecified; G89.29 Other chronic pain; I25.10 Atherosclerotic heart disease of native coronary artery without angina pectoris; R62.7 Adult failure to thrive; F41.1 Generalized anxiety disorder; C44.90 Unspecified malignant neoplasm of skin, unspecified; Z66 Do not resuscitate; I11.9 Hypertensive heart disease without heart failure; M54.59 Other low back pain; Z79.82 Long term (current) use of aspirin; Z82.49 Family history of ischemic heart disease and other diseases of the circulatory system; Z83.3 Family history of diabetes mellitus; Z90.11 Acquired absence of right breast and nipple; Z68.24 Body mass index [BMI] 24.0-24.9, adult
CPT/HCPCS: 51702; 71045; 80048; 80053; 81001; 82962; 83605; 83690; 83880; 84132; 84484; 85025; 87040; 87081; 93005; 97110; 97116; 97140; 97162; 97530; 99285; J1100; J1200; J1630; J1644; J2060; J2405; J3480; J7030; J7040; J7050; Q9967; 36415-L1; 36415-TC